=== PATIENT | female | born 1955 | race Caucasian/White ===

== ENCOUNTER → 2017-10-03 09:18 | Outpatient (CLI) | payer OTHER, SELFPAY ==
[2017-10-03 10:17] LABS: Absolute Lymphocyte Count 1.37 X10^3/ul (0.83-4.51); Basophil# 0.01 X10^3/uL; Basophil% 0.2 % (0-1); Eosinophil# 0.09 X10^3/uL; Eosinophils% 1.5 % (0-5); Hematocrit 44.3 % (37-47); Hemoglobin 14.8 g/dl (12.0-15.0); Lymphocyte # 1.37 X10^3/ul (4.0); Lymphocyte % 23.2 % (19-41); Mean Corp Hgb Conc 33.4 g/gl (32-36); Mean Corpuscular Hgb 30.8 pg (27.0-32.0); Mean Corpuscular Volume 92.3 fL (81-99); Mean Platelet Vol. 9.5 fl (6.2-12.0); Monocyte# 0.45 X10^3/uL; Monocyte% 7.6 % (0-10); Neutrophil # 3.98 X10^3/uL (2.7-7.7); Neutrophil % 67.3 % (47-70); Platelet Count 228 K/mm3 (150-450); RBC Distribution Width CV 12.5 % (11.6-14.6); RBC Distribution Width SD 42.1 fl (35.1-43.9); White Blood Count 5.9 K/mm3 (4.4-11.0)
[2017-10-03 10:29] LABS: POSITIVE COUNT NO; POSITIVE DIFFERENTIAL NO; POSITIVE MORPHOLOGY NO
[2017-10-03 10:51] LABS: AST(SGOT) 15 U/L (15-37); Alanine Aminotransfer ALT/SGPT 24 U/L (13-56); Albumin, Serum 3.7 g/dL (3.2-5.0); Alkaline Phosphatase 92 U/L (45-117); Anion Gap 4 (5-15); BUN 10 mg/dL (7-18); BUN/Creat Ratio 10.9 RATIO (10-20); Calcium,Total 8.4 mg/dL (8.5-10.1); Chloride 110 mmol/L (98-107); Cholesterol 177 mg/dL (200); Creatinine, Serum 0.92 mg/dL (0.55-1.02); EST Glomerular Filtration Rate 66 mL/min (>60); Est Glom Filt Rate - Afr Amer 80 mL/min (>60); Globulin 3.6 g/dL (2.2-4.2); Glucose 91 mg/dL (74-106); High Density Lipoprotein 64 mg/dL; Potassium 3.4 mmol/L (3.5-5.1); Protein, Total 7.3 g/dL (6.4-8.2); Sodium Level 142 mmol/L (136-145); Triglycerides 110 mg/dL; Very Low Density Lipoprotein 22 mg/dL (5-40)
== END ==
PROVIDERS: Family Provider Family Medicine; PCP Family Medicine; Visit Provider Family Medicine
DX: E78.5 Hyperlipidemia, unspecified (principal); Z51.81 Encounter for therapeutic drug level monitoring
CPT/HCPCS: 36415; 80053; 80061; 85025

== ENCOUNTER → 2017-10-15 11:39 | Outpatient (CLI) | payer OTHER, SELFPAY ==
[2017-10-15 14:44] LABS: CRP < 2.90 mg/L (0.0-3.0)
[2017-10-16 20:08] LABS: Endomysial Antibody IgA Negative (Negative)
[2017-10-17 11:26] LABS: Immunoglobulin A 211 mg/dL (87-352); t-Transglutaminase IgA <2 U/mL (0-3)
== END ==
PROVIDERS: Family Provider Family Medicine; PCP Family Medicine; Visit Provider Internal Medicine Gastroenterology
DX: R19.7 Diarrhea, unspecified (principal)
CPT/HCPCS: 36415; 82784; 83516; 86140; 86255

== ENCOUNTER → 2018-12-01 09:44 | Outpatient (CLI) | payer OTHER, SELFPAY ==
--- NOTE | 2018-12-01 09:50 | MRI_ITS ---
STUDY: MRI ORBITS WITH AND WITHOUT CONTRAST REASON FOR EXAM: Female, 63 years old. BENIGN NOEPLASM OF LEFT ORBIT, HEADACHES TECHNIQUE: Standardized fat and water weighted pulse sequences were obtained in all 3 orthogonal planes, pre-and post contrast administration. IV Dotarem 15 was administered for the contrast portion of the examination. COMPARISON: None. FINDINGS: Normal bilateral globes. Normal bilateral optic nerve sheath complexes and optic nerves. Normal bilateral intraconal and extraconal spaces. Normal bilateral extraocular muscles. Normal optic chiasm and post-chiasmatic tracts. Normal sella turcica, pituitary gland, infundibular stalk, and hypothalamus. Normal bilateral cavernous sinuses. Normal tectal plate and pineal gland. Normal flow voids within the major intracranial circulation suggesting patency by spin echo criteria. There is mild cerebral atrophy with widening of the extra-axial spaces and ventricular dilatation. There are a limited number of small white matter hyperintensities, distributed throughout the deep white matter tracts of the cerebral hemispheres, consistent with mild chronic white matter ischemic changes. Normal bilateral basal ganglia. Normal thalami. There is no extra-axial fluid accumulation. Normal midbrain, yordy and medulla. Normal cerebellum. Normal basal cisterns. MRI/Orbit Face Neck W/WO Contrast IMPRESSION: Unremarkable orbits. Electronically Signed: Ila Ferro MD at 9:48 EDT Tel , Service support ,
[2018-12-01 10:31] LABS: CREATININE FINGERSTICK 0.8 mg/dL (0.55-1.02); EGFR FINGERSTICK > 60.0000 mL/min (>60)
== END ==
PROVIDERS: Family Provider Family Medicine; PCP Family Medicine; Referring Provider Psychiatry & Neurology Neurology; Visit Provider Psychiatry & Neurology Neurology
DX: D31.62 Benign neoplasm of unspecified site of left orbit (principal)
CPT/HCPCS: 70543; A9575

== ENCOUNTER 2020-05-12 09:59 | Outpatient (RCR) | payer OTHER, SELFPAY ==
[2020-05-12] MEDS: COVID-19 VACC, MRNA(PFIZER)/PF 30 MCG/0.3 ML SYRINGE IM (13:12)
[2020-06-02] MEDS: COVID-19 VACC, MRNA(PFIZER)/PF 30 MCG/0.3 ML SYRINGE IM (13:09)
== END 2020-08-08 23:59 ==
LOC: IMMUN 09:59
PROVIDERS: PCP Family Medicine; Referring Provider Family Medicine; Visit Provider Family Medicine
DX: Z23 Encounter for immunization (principal)
CPT/HCPCS: 0001A; 0002A; 91300

== ENCOUNTER → 2022-01-25 | Outpatient (CLI) | payer OTHER, SELFPAY ==
--- NOTE | 2022-01-25 13:28 | BI_ITS ---
MAMMOGRAPHY - BILATERAL SCREENING REASON FOR EXAM: Female, 66 years old. Routine annual screening examination. PERTINENT HISTORY: Non-contributory. TECHNIQUE: Digital bilateral breast maribel (3D mammographic acquisition) in the CC and MLO projections. 2-D mediolateral oblique (MLO) and craniocaudad (CC) views of both breasts were obtained. CAD: Full Field Digital Mammography with Computer Added Detection was performed. COMPARISON: 08/23/2015, 09/21/2013. FINDINGS: Breast Composition: There are scattered areas of fibroglandular density. There are no dominant masses or suspicious calcifications. No other significant abnormalities are identified. There has been no significant change since the prior study. BI/SCRN MAMM (CAD)W/MARIBEL BILAT IMPRESSION: Stable bilateral screening mammogram. Yearly follow-up mammogram recommended. (A) ASSESSMENT CATEGORY: BIRADS Category 1: Negative. A letter regarding these results will be sent to the patient by the facility within 30 days. Approximately 10% of breast cancers are not detected by mammography. A normal mammogram should not delay biopsy of a clinically suspicious abnormality. Electronically Signed: Tio Parra, at 15:05 EST ,
== END | disposition home or self-care (01) ==
LOC: OPBI 13:27
PROVIDERS: PCP Family Medicine; Referring Provider Family Medicine; Visit Provider Family Medicine
DX: Z12.31 Encounter for screening mammogram for malignant neoplasm of breast (principal)
CPT/HCPCS: 77063; 77067

== ENCOUNTER → 2022-01-31 | Outpatient (CLI) | payer MEDICARE, SELFPAY ==
[2022-01-31 10:28] LABS: Absolute Lymphocyte Count 1.85 X10^3/uL (0.83-4.51); Absolute Neutrophil Count 3.8 X10^3/uL (2.0-7.7); Basophil# 0.02 X10^3/uL; Basophil% 0.3 % (0-1); Eosinophil# 0.08 X10^3/uL; Eosinophils% 1.3 % (0-5); Hematocrit 44.4 % (37-47); Hemoglobin 14.5 g/dL (12.0-15.0); Lymphocyte # 1.85 X10^3/ul (0.83-4.51); Lymphocyte % 29.3 % (19-41); Mean Corp Hgb Conc 32.7 g/dL (32-36); Mean Corpuscular Hgb 30.5 pg (27.0-32.0); Mean Corpuscular Volume 93.3 fL (81-99); Mean Platelet Vol. 9.5 fl (6.2-12.0); Monocyte# 0.55 X10^3/uL; Monocyte% 8.7 % (0-10); NRBC Flagged by Analyzer 0 % (0-5); Neutrophil # 3.79 X10^3/uL (2.7-7.7); Neutrophil % 60.1 % (47-70); Platelet Count 247 K/mm3 (150-450); RBC Distribution Width CV 12.2 % (11.6-14.6); RBC Distribution Width SD 42.1 fl (35.1-43.9); Red Blood Count 4.76 M/mm3 (4.2-5.4); White Blood Count 6.3 K/mm3 (4.4-11.0)
[2022-01-31 11:20] LABS: ALB/GLOB Ratio 1.3 RATIO (0.9-2.4); AST(SGOT) 10 U/L (15-37); Alanine Aminotransfer ALT/SGPT 23 U/L (13-56); Albumin, Serum 3.7 g/dL (3.2-5.0); Alkaline Phosphatase 83 U/L (45-117); Anion Gap 8 (5-15); BUN 14 mg/dL (7-18); BUN/Creat Ratio 17.1 RATIO (10-20); Calcium,Total 8.3 mg/dL (8.5-10.1); Chloride 109 mmol/L (98-107); Cholesterol 189 mg/dL (200); Creatinine, Serum 0.82 mg/dL (0.55-1.02); EST Glomerular Filtration Rate 75 mL/min (>60); Est Glom Filt Rate - Afr Amer 90 mL/min (>60); Globulin 2.8 g/dL (2.2-4.2); Glucose 82 mg/dL (74-106); High Density Lipoprotein 79 mg/dL; Potassium 3.6 mmol/L (3.5-5.1); Protein, Total 6.5 g/dL (6.4-8.2); Sodium Level 142 mmol/L (136-145); Triglycerides 126 mg/dL; Very Low Density Lipoprotein 25 mg/dL (5-40)
== END | disposition home or self-care (01) ==
PROVIDERS: PCP Family Medicine; Referring Provider Family Medicine; Visit Provider Family Medicine
DX: E78.5 Hyperlipidemia, unspecified (principal); Z51.81 Encounter for therapeutic drug level monitoring
CPT/HCPCS: 36415; 80053; 80061; 85025

== ENCOUNTER 2022-05-30 07:02 | Day surgery (SDC) | payer MEDICARE, OTHER, SELFPAY ==
[2022-05-30] MEDS: Lactated Ringers 1,000 ML 15 ML IV (07:24)
[2022-05-30 07:25] VITALS: BP 111/71; PULSE 71; RESP 16; TEMP 36.7; O2SAT 98; BMI 25.2
--- NOTE | 2022-05-30 07:46 | HP.PCM_ITS ---
History and Physical Date of Admission: 05/30/22 67 F who presents to the office today for PMH anxiety/depression; hyperlipidemia. PSH cholecystectomy *BGI established 05.17.22 with referral from PCP. Many years ago seen by Dr. Lindsay who she reports diagnosed her with diverticulosis and IBS-D; a medication was used at this time that was helpful but cannot remember the names. Postprandial and urgent watery stools for many years with urgency incontinence and intermittent LLQ pain, sometimes relieved by BM. She has attempted many OTC medication that were ineffective. GERD is also an intermittent issue. She does not take medication for this; sleeps with HOB elevated. ROS Const Constitutional: No anorexia, fatigue, fever(s), weight change or sleep problems Eyes Eyes: No change in vision ENT ENT: No abnormal hearing, difficulty swallowing, mouth lesions, tongue swelling or throat swelling Resp Respiratory: No cough or shortness of breath Cardio Cardiology: No chest pain at rest, chest pain with exertion, shortness of breath or dyspnea on exertion Gastro GI: No difficulty swallowing Genitourinary-Female: No difficulty urinating or burning urination Musc Musculoskeletal: No joint pain, joint swelling, muscle weakness or decreased muscle mass Skin Skin: No hair loss in leg, yellowing of the eye, itchy eyes, rash, skin ulcer or skin swelling Neuro Neurology: No abnormal hearing, abnormal movements, confusion, unsteady gait/balance or memory loss Psych Psychiatric: No anxiety, No confusion and No memory loss Endo Endocrine: No fatigue or weight change Aller/Imm Allergy/Immunologic: No itchy eyes, throat swelling or tongue swelling Joe/Lymp Hematologic/Lymphatic: No easy bleeding, easy bruising or enlarged lymph nodes Exam Const General: cooperative and comfortable Nutritional Appearance: average body habitus and well nourished [facility] Head: normal to inspection Ears: hearing grossly normal bilaterally Nose: external nose normal Face and sinus: normal facial exam Mouth: oral mucosae normal Throat: posterior oropharynx normal Eyes General: appearance normal, both eyes and all related structures Neck Neck: normal visual inspection Chest Chest palpation & inspection: normal inspection of the chest and normal palpation of entire chest wall Resp Effort & Inspection: normal respiratory effort Auscultation: Bilateral: Clear to Auscultation Cardio Palpation: normal PMI Rate: regular rate Rhythm: regular rhythm GI Inspection: normal to inspection Auscultation: normal bowel sounds Percussion: normal to percussion Palpation: no hepatosplenomegaly Skin General: no rashes or lesions noted Neuro General: patient alert Extrem General: normal to inspection Psych Affect: normal affect Quality Reporting Tobacco Screening ([facility]) Smoking Status: Never smoker Assessment and Plan Assessment and Plan (1) Chronic diarrhea: ?Status:?Chronic ?Plan: Differential diagnosis for chronic diarrhea does include inflammatory bowel disease including Crohn's disease.? Also the different diagnosis would be other secretory diarrhea such as ischemic colitis, microscopic colitis, lymphocytic colitis, celiac sprue, infectious colitis or enterocolitis.? We will perform biochemical work-up and she may need repeat upper and lower endoscopy in the future.? Pending biochemical work-up and stool test she may also need small bowel evaluation.? As for now we will see what her biochemical work-up shows and further recommendation to follow. ? ? ? Orders: Orders Comprehensive Metabolic Profil Today E78.5 - Hyperlipidemia, unspecified, K52.9 - Noninfective gastroenteritis and colitis, unspecified ? CRP Today E78.5 - Hyperlipidemia, unspecified, K52.9 - Noninfective gastroenteritis and colitis, unspecified ? LDH Today E78.5 - Hyperlipidemia, unspecified, K52.9 - Noninfective gastroenter itis and colitis, unspecified ? Lipid Profile Today E78.5 - Hyperlipidemia, unspecified, K52.9 - Noninfective gastroenteritis and colitis, unspecified ? CBC W/Diff, Automated Today E78.5 - Hyperlipidemia, unspecified, K52.9 - Noninfective gastroenteritis and colitis, unspecified ? Erythrocyte Sed Rate Today E78.5 - Hyperlipidemia, unspecified, K52.9 - Noninfective gastroenteritis and colitis, unspecified ? [place] Comprehensive Panel Today E78.5 - Hyperlipidemia, unspecified, K52.9 - Noninfective gastroenteritis and colitis, unspecified ? Calprotectin, Stool Today E78.5 - Hyperlipidemia, unspecified, K52.9 - Noninfective gastroenteritis and colitis, unspecified ? Fecal Fat, Qualitative Today E78.5 - Hyperlipidemia, unspecified, K52.9 - Noninfective gastroenteritis and colitis, unspecified ? OVA+PARA w/Giardia EIA [id number] Today E78.5 - Hyperlipidemia, unspecified, K52.9 - Noninfective gastroenteritis and colitis, unspecified ? CDIFF (PCR) Today E78.5 - Hyperlipidemia, unspecified, K52.9 - Noninfective gastroenteritis and colitis, unspecified ? ENTERIC PATHOGEN PANEL STOOL Today E78.5 - Hyperlipidemia, unspecified, K52.9 - Noninfective gastroenteritis and colitis, unspecified, K58.9 - Irritable bowel syndrome without diarrhea ? Stool Lactoferrin/WBC Today E78.5 - Hyperlipidemia, unspecified, K52.9 - Noninfective gastroenteritis and colitis, unspecified ? ANCA Today E78.5 - Hyperlipidemia, unspecified, K52.9 - Noninfective gastroenteritis and colitis, unspecified ? Celiac Disease Profile Today E78.5 - Hyperlipidemia, unspecified, K52.9 - Noninfective gastroenteritis and colitis, unspecified ? Immunoglobulins G/A/M/E Today E78.5 - Hyperlipidemia, unspecified, K52.9 - Noninfective gastroenteritis and colitis, unspecified ? TRAE + Protein Elect, Serum Today E78.5 - Hyperlipidemia, unspecified, K52.9 - Noninfective gastroenteritis and colitis, unspecified ? Pancreatic Elastase, Fecal Today E78.5 - Hyperlipidemia, unspecified, K52.9 - Noninfective gastroenteritis and colitis, unspecified ? Miscellaneous Lab Procedure Today E78.5 - Hyperlipidemia, unspecified, K52.9 - Noninfective gastroenteritis and colitis, unspecified ? I have examined the patient and the H&P has been reviewed. There are no clinical changes since date of exam.
--- NOTE | 2022-05-30 08:15 | IMM_PTH ---
PATIENT: REDD BRANDT LOC: EN U#:[id number] AGE/SX: 67/F ROOM: RE05/30/[address]: Dr. Vivek Feliz DO : 1955 BED: DIS: 05/30/2022 SPEC #: [id number] RECD: 05/30/22 14:14 STATUS: HOA REQ #: [id number] SUZANNE: 05/30/22 08:[address]: Vivek Feliz DEPT: IMMUNOHISTOCHEMISTRY RECD BY: Jesi Dillno ENTERED: 05/30/22 14:15 SP TYPE: IMMUNO OTHR DR: Dr. Ilda Cleaning DO Tissues: B - Stomach, NOS Procedures: H Pylori (initial) PHYSICIAN & INSTITUTION [place] [id number] SPECIMEN INFORMATION: Tissue Source: B ? Gastric body Clinical Info: Chronic diarrhea Specimen Number: [id number] CPT code: 54801 METHODOLOGY: Deparaffinized sections of prefer/formalin-fixed tissue or PAP/DQ stained slides are incubated with monoclonal/polyclonal antibodies/oligonucleotide probes. Localization is made via biotin free immunoperoxidase method. Appropriate controls are performed and reacted as expected. Results on target cell population are indicated in the following table: RESULTS: ANTIBODY / CLONE RESULT Block B H Pylori (polyclonal) negative These tests were developed and their performance characteristics determined by [facility]. They may not have been cleared or approved by the U.S. Food and Drug Administration. The FDA has determined that such clearance or approval is not necessary. The above immunohistochemical/dualISH markers are ordered and reviewed by the Pathologist. INTERPRETATION: B. Gastric body, biopsy: Negative for Helicobacter pylori organisms. SJ:trenton 05/31/2022
--- NOTE | 2022-05-30 08:15 | EGD_PTH ---
PATIENT: REDD BRANDT LOC: EN U#:[id number] AGE/SX: 67/F ROOM: RE05/30/[address]: Dr. Vivek Feliz DO : 1955 BED: DIS: 05/30/2022 SPEC #: [id number] RECD: 05/30/22 12:55 STATUS: HOA REDangelo #: [id number] SUZANNE: 05/30/22 08:[address]: Vivek Feliz DEPT: SURGICAL PATHOLOGY RECD BY: Ayesha Adrian ENTERED: 05/30/22 13:27 SP TYPE: EGD BIOPSY OT DR: Dr. Ilda Cleaning DO Tissues: A - Duodenum, NOS B - Gastric mucous membrane C - Esophagus, NOS D - COLON BIOPSY E - Ileum, NOS F - Cecum, NOS G - Transverse colon Procedures: Special Stain Group II Surgery Specimen Level IV Alcian Blue/PAS (control) HEADER OPERATION: Colonoscopy, EGD ([facility]), biopsy PRE-OP DIAGNOSIS: Chronic diarrhea TISSUE SUBMITTED: A ? Duodenum biopsy, B ? Gastric body biopsy, C ? Distal esophagus biopsy, D ? Hepatic flexure polyp biopsy, E ? Terminal ileum biopsy, F ? Cecal polyp biopsy, G ? Transverse polyp biopsy MICROSCOPIC DIAGNOSIS A. Duodenum, biopsy: Fragments of duodenal mucosa, no pathologic diagnosis. B. Gastric body, biopsy: Mild gastritis. See microscopic description and comment. C. Distal esophagus, biopsy: A fragment of gastric mucosa with mild chronic inflammation. Intestinal metaplasia (goblet cell metaplasia) not identified. See comment. D. Hepatic flexure polyp, biopsy: Tubular adenoma. E. Terminal ileum, biopsy: Fragments of small intestinal mucosa, no pathologic diagnosis. F. Cecal polyp, biopsy: Tubular adenoma. G. Transverse colon polyp, biopsy: Fragments of tubular adenoma. SJ:trenton 05/31/2022 COMMENT B. The results of immunohistochemistry for Helicobacter pylori will be reported separately ([id number]). C. Alcian blue/PAS stain with matched control is used in the evaluation of the specimen. MICROSCOPIC DESCRIPTION Slides are reviewed. B. The specimen shows fragments of gastric mucosa with chronic inflammatory cell infiltrates in the lamina propria consisting of lymphocytes and plasma cells, consistent with mild chronic gastritis. GROSS DESCRIPTION A - Received in fixative is one container labeled with the patient's name and designated duodenum biopsy. The specimen consists of two irregular fragments of light sánchez soft tissue that in aggregate measure 0.6 x 0.3 x 0.1 cm. The specimen is totally submitted in one cassette. B - Received in fixative is one container labeled with the patient's name and designated gastric body biopsy. The specimen consists of two irregular fragments of light sánchez soft tissue that in aggregate measure 0.8 x 0.5 x 0.1 cm. The specimen is totally submitted in one cassette. C - Received in fixative is one container labeled with the patient's name and designated distal esophagus biopsy. The specimen consists of one irregular fragment of light sánchez soft tissue that measures 0.4 x 0.2 x 0.1 cm. The specimen is totally submitted in one cassette. D - Received in fixative is one container labeled with the patient's name and designated hepatic flexure polyp. The specimen consists of two irregular fragments of light sánchez soft tissue that in aggregate measure 0.5 x 0.3 x 0.1 cm. The specimen is totally submitted in one cassette. E - Received in fixative is one container labeled with the patient's name and designated terminal ileum biopsy. The specimen consists of two irregular fragments of light sánchez soft tissue that in aggregate measure 0.6 x 0.3 x 0.1 cm. The specimen is totally submitted in one cassette. F - Received in fixative is one container labeled with the patient's name and designated cecal polyp biopsy. The specimen consists of one irregular fragment of light sánchez soft tissue that measures 0.3 x 0.4 x 0.1 cm. The specimen is totally submitted in one cassette. G - Received in fixative is one container labeled with the patient's name and designated transverse polyp biopsy. The specimen consists of two irregular fragments of light sánchez soft tissue that in aggregate measure 0.6 x 0.3 x 0.1 cm. The specimen is totally submitted in one cassette. / SJ:rg 05/30/2022 TC:1 CPT: 77361 x7, 03180
[2022-05-30 08:56] VITALS: BP 111/71; BP 123/77; PULSE 58; RESP 16; TEMP 36.2; O2SAT 99
--- NOTE | 2022-05-30 08:58 | OP.EGD_ITS ---
Patient Name: Belgica Malin Procedure Date: 05/30/2022 7:46 AM Date of : 1955 Age: 67 Procedure: Upper GI endoscopy Indications: Epigastric abdominal pain, Functional Dyspepsia, Suspected esophageal reflux Providers: Vivek Feliz DO Medicines: Monitored Anesthesia Care Patient Profile: This is a 67 year old female. Refer to note in patient chart for documentation of history and physical. Patient has symptoms of chronic epigastric abdominal pain, chronic dyspepsia and chronic nausea. Complications: No immediate complications. Procedure: Pre-Anesthesia Assessment: - Prior to the procedure, a History and Physical was performed, and patient medications and allergies were reviewed. The patient is competent. The risks and benefits of the procedure and the sedation options and risks were discussed with the patient. All questions were answered and informed consent was obtained. Patient identification and proposed procedure were verified by the physician in the pre-procedure area. Mental Status Examination: alert and oriented. Airway Examination: normal oropharyngeal airway and neck mobility. Respiratory Examination: clear to auscultation. CV Examination: normal. Prophylactic Antibiotics: The patient does not require prophylactic antibiotics. Prior Anticoagulants: The patient has taken no previous anticoagulant or antiplatelet agents. ASA Grade Assessment: II - A patient with mild systemic disease. After reviewing the risks and benefits, the patient was deemed in satisfactory condition to undergo the procedure. The anesthesia plan was to use monitored anesthesia care (MAC). Immediately prior to administration of medications, the patient was re-assessed for adequacy to receive sedatives. The heart rate, respiratory rate, oxygen saturations, blood pressure, adequacy of pulmonary ventilation, and response to care were monitored throughout the procedure. The physical status of the patient was re-assessed after the procedure. After obtaining informed consent, the endoscope was passed under direct vision. Throughout the procedure, the patient's blood pressure, pulse, and oxygen saturations were monitored continuously. The pediatric colonoscope was introduced through the mouth, and advanced to the second part of duodenum. The upper GI endoscopy was accomplished without difficulty. The patient tolerated the procedure well. Scope In: 8:35:09 AM Scope Out: 8:39:01 AM Total Procedure Duration Time 0 hours 3 minutes 52 seconds Findings: Mucosal changes including ringed esophagus, feline appearance and small-caliber esophagus were found in the middle third of the esophagus and in the lower third of the esophagus. LA Grade A (one or more mucosal breaks less than 5 mm, not extending between tops of 2 mucosal folds) esophagitis with no bleeding was found 37 to 38 cm from the incisors. Biopsies were taken with a cold forceps for histology. Verification of patient identification for the specimen was done. Estimated blood loss was minimal. Patchy mild inflammation characterized by congestion (edema) and erythema was found in the stomach. Biopsies were taken with a cold forceps for histology. Verification of patient identification for the specimen was done. Estimated blood loss was minimal. No gross lesions were noted in the second portion of the duodenum. Biopsies were taken with a cold forceps for histology. Verification of patient identification for the specimen was done. Estimated blood loss was minimal. A medium-sized hiatal hernia was present. Impression: - Esophageal mucosal changes consistent with eosinophilic esophagitis. - LA Grade A reflux esophagitis. Biopsied. - Bile gastritis. Biopsied. - No gross lesions in the second portion of the duodenum. Biopsied. Recommendation: - Discharge patient to home. - Resume previous diet. - Continue present medications. - Await pathology results. - Repeat upper endoscopy in 1 year for surveillance. Procedure Code(s): --- Professional --- 02079, Esophagogastroduodenoscopy, flexible, transoral; with biopsy, single or multiple CPT copyright 2017 [employer]. All rights reserved. The codes documented in this report are preliminary and upon hand salter review may be revised to meet current compliance requirements. Vivek Feliz DO 05/30/2022 8:58:27 AM This report has been signed electronically. Number of Addenda: 0 Note Initiated On: 05/30/2022 7:46 AM
--- NOTE | 2022-05-30 08:59 | OP.CCLET_ITS ---
05/30/2022 Ilda Cleaning [address] [place] [address] Re : Upper GI endoscopy procedure for Belgica Malin Dear Dr. Cleaning This procedure was performed on May. My impressions and recommendations are as follows: Impressions : - Esophageal mucosal changes consistent with eosinophilic esophagitis. - LA Grade A reflux esophagitis. Biopsied. - Bile gastritis. Biopsied. - No gross lesions in the second portion of the duodenum. Biopsied. Recommendations : - Discharge patient to home. - Resume previous diet. - Continue present medications. - Await pathology results. - Repeat upper endoscopy in 1 year for surveillance. My findings are described in the full procedure note, which is enclosed. If I can be of further assistance, please feel free to contact me at . Sincerely, Vivek Feliz, 05/30/2022 8:58:27 AM This report has been signed electronically.
[2022-05-30 09:00] VITALS: BP 111/71; BP 90/63; PULSE 76; RESP 16; O2SAT 100
[2022-05-30 09:05] VITALS: BP 111/71; BP 94/61; PULSE 70; RESP 16; O2SAT 100
--- NOTE | 2022-05-30 09:06 | OP.COLON_ITS ---
Patient Name: Belgica Malin Procedure Date: 05/30/2022 8:39 AM Date of : 1955 Age: 67 Procedure: Colonoscopy Indications: Screening for colorectal malignant neoplasm Providers: Vivek Feliz DO Medicines: Monitored Anesthesia Care Patient Profile: This is a 67 year old female. Refer to note in patient chart for documentation of history and physical. Patient has symptoms of chronic epigastric abdominal pain, chronic dyspepsia and chronic nausea. Last Colonoscopy: date unknown. Unable to locate last colonoscopy report. Complications: No immediate complications. Procedure: Pre-Anesthesia Assessment: - Prior to the procedure, a History and Physical was performed, and patient medications and allergies were reviewed. The patient is competent. The risks and benefits of the procedure and the sedation options and risks were discussed with the patient. All questions were answered and informed consent was obtained. Patient identification and proposed procedure were verified by the physician in the pre-procedure area. Mental Status Examination: alert and oriented. Airway Examination: normal oropharyngeal airway and neck mobility. Respiratory Examination: clear to auscultation. CV Examination: normal. Prophylactic Antibiotics: The patient does not require prophylactic antibiotics. Prior Anticoagulants: The patient has taken no previous anticoagulant or antiplatelet agents. ASA Grade Assessment: II - A patient with mild systemic disease. After reviewing the risks and benefits, the patient was deemed in satisfactory condition to undergo the procedure. The anesthesia plan was to use monitored anesthesia care (MAC). Immediately prior to administration of medications, the patient was re-assessed for adequacy to receive sedatives. The heart rate, respiratory rate, oxygen saturations, blood pressure, adequacy of pulmonary ventilation, and response to care were monitored throughout the procedure. The physical status of the patient was re-assessed after the procedure. After I obtained informed consent, the scope was passed under direct vision. Throughout the procedure, the patient's blood pressure, pulse, and oxygen saturations were monitored continuously. The pediatric colonoscope was introduced through the anus and advanced to the terminal ileum. The colonoscopy was performed without difficulty. The patient tolerated the procedure well. The quality of the bowel preparation was good. Scope In: 8:41:16 AM Scope Withdrawal Time 0 hours 5 minutes 37 seconds Scope Out: 8:51:23 AM Total Procedure Duration Time 0 hours 10 minutes 7 seconds Findings: The perianal and digital rectal examinations were normal. Many small and large-mouthed diverticula were found in the recto-sigmoid colon, sigmoid colon and descending colon. Three sessile polyps were found in the descending colon, transverse colon and hepatic flexure. The polyps were 1 to 2 mm in size. These polyps were removed with a cold snare. Resection and retrieval were complete. Verification of patient identification for the specimen was done. Estimated blood loss was minimal. An area of mildly congested mucosa was found at the splenic flexure, in the transverse colon and at the hepatic flexure. Biopsies were taken with a cold forceps for histology. The pathology specimen was placed into Bottle Number 1. Estimated blood loss: none. The terminal ileum appeared normal. Biopsies were taken with a cold forceps for histology. Verification of patient identification for the specimen was done. Estimated blood loss was minimal. Impression: - Diverticulosis in the recto-sigmoid colon, in the sigmoid colon and in the descending colon. - Three 1 to 2 mm polyps in the descending colon, in the transverse colon and at the hepatic flexure, removed with a cold snare. Resected and retrieved. - Congested mucosa at the splenic flexure, in the transverse colon and at the hepatic flexure. Biopsied. - The examined portion of the ileum was normal. Biopsied. Recommendation: - Discharge patient to home. - Resume regular diet. - Continue present medications. - Await pathology results. - Repeat colonoscopy in 3 years for surveillance. Procedure Code(s): --- Professional --- 78842, Colonoscopy, flexible; with removal of tumor(s), polyp(s), or other lesion(s) by snare technique 83873, 59, Colonoscopy, flexible; with biopsy, single or multiple CPT copyright 2017 [employer]. All rights reserved. The codes documented in this report are preliminary and upon hat brim curler review may be revised to meet current compliance requirements. Vivek Feliz DO 05/30/2022 9:06:15 AM This report has been signed electronically. Number of Addenda: 0 Note Initiated On: 05/30/2022 8:39 AM
--- NOTE | 2022-05-30 09:07 | OP.CCLET_ITS ---
05/30/2022 Ilda Cle[facility] [address] [place] [address] Re : Colonoscopy procedure for Belgica Salinast Dear Dr. Cleaning This procedure was performed on May. My impressions and recommendations are as follows: Impressions : - Diverticulosis in the recto-sigmoid colon, in the sigmoid colon and in the descending colon. - Three 1 to 2 mm polyps in the descending colon, in the transverse colon and at the hepatic flexure, removed with a cold snare. Resected and retrieved. - Congested mucosa at the splenic flexure, in the transverse colon and at the hepatic flexure. Biopsied. - The examined portion of the ileum was normal. Biopsied. Recommendations : - Discharge patient to home. - Resume regular diet. - Continue present medications. - Await pathology results. - Repeat colonoscopy in 3 years for surveillance. My findings are described in the full procedure note, which is enclosed. If I can be of further assistance, please feel free to contact me at . Sincerely, Vivek Feliz, 05/30/2022 9:06:15 AM This report has been signed electronically.
[2022-05-30 09:10] VITALS: BP 111/71; BP 92/59; PULSE 69; RESP 16; O2SAT 98
[2022-05-30 09:26] VITALS: BP 111/71
== END 2022-05-30 09:30 | disposition home or self-care (01) ==
LOC: EN 07:02 → AC 07:05
PROVIDERS: PCP Family Medicine; Referring Provider Family Medicine; Visit Provider Internal Medicine Gastroenterology
PROC: 0DJD8ZZ Inspection of Lower Intestinal Tract, Via Natural or Artificial Opening Endoscopic (ICD-10-PCS; CPT 45378; principal; 2022-05-30 08:10)
DX: Z12.11 Encounter for screening for malignant neoplasm of colon (principal); K29.70 Gastritis, unspecified, without bleeding; K21.00 Gastro-esophageal reflux disease with esophagitis, without bleeding; K57.30 Diverticulosis of large intestine without perforation or abscess without bleeding; E78.5 Hyperlipidemia, unspecified; K52.9 Noninfective gastroenteritis and colitis, unspecified; D12.3 Benign neoplasm of transverse colon; D12.0 Benign neoplasm of cecum; Z87.19 Personal history of other diseases of the digestive system
CPT/HCPCS: 43239; 45380; 45385; 88305; 88313; 88342; J2405

== ENCOUNTER → 2022-06-06 | Outpatient (CLI) | payer MEDICARE, OTHER, SELFPAY ==
[2022-06-06 09:59] LABS: Erythrocyte Sedimentation Rate 12 mm/hr (0-30)
[2022-06-06 10:02] LABS: Absolute Lymphocyte Count 1.48 X10^3/uL (0.83-4.51); Absolute Neutrophil Count 4.1 X10^3/uL (2.0-7.7); Basophil# 0.02 X10^3/uL; Basophil% 0.3 % (0-1); Eosinophil# 0.07 X10^3/uL; Eosinophils% 1.1 % (0-5); Hematocrit 43.7 % (37-47); Hemoglobin 14.9 g/dL (12.0-15.0); Lymphocyte # 1.48 X10^3/ul (0.83-4.51); Lymphocyte % 24.2 % (19-41); Mean Corp Hgb Conc 34.1 g/dL (32-36); Mean Corpuscular Hgb 31.5 pg (27.0-32.0); Mean Corpuscular Volume 92.4 fL (81-99); Mean Platelet Vol. 9.3 fl (6.2-12.0); Monocyte# 0.42 X10^3/uL; Monocyte% 6.9 % (0-10); NRBC Flagged by Analyzer 0 % (0-5); Neutrophil # 4.12 X10^3/uL (2.7-7.7); Neutrophil % 67.3 % (47-70); Platelet Count 239 K/mm3 (150-450); RBC Distribution Width CV 12.1 % (11.6-14.6); RBC Distribution Width SD 41.6 fl (35.1-43.9); Red Blood Count 4.73 M/mm3 (4.2-5.4); White Blood Count 6.1 K/mm3 (4.4-11.0)
[2022-06-06 10:15] LABS: ALB/GLOB Ratio 1.2 RATIO (0.9-2.4); AST(SGOT) 15 U/L (15-37); Alanine Aminotransfer ALT/SGPT 24 U/L (13-56); Albumin, Serum 3.8 g/dL (3.2-5.0); Alkaline Phosphatase 87 U/L (45-117); Anion Gap 8 (5-15); BUN 15 mg/dL (7-18); BUN/Creat Ratio 18.2 RATIO (10-20); CRP < 2.90 mg/L (0.0-3.0); Calcium,Total 9.3 mg/dL (8.5-10.1); Chloride 109 mmol/L (98-107); Cholesterol 183 mg/dL (200); Creatinine, Serum 0.82 mg/dL (0.55-1.02); EST Glomerular Filtration Rate 74 mL/min (>60); Est Glom Filt Rate - Afr Amer 90 mL/min (>60); Globulin 3.2 g/dL (2.2-4.2); Glucose 90 mg/dL (74-106); High Density Lipoprotein 66 mg/dL; LDH 152 U/L (84-246); Potassium 3.2 mmol/L (3.5-5.1); Sodium Level 141 mmol/L (136-145); Triglycerides 108 mg/dL; Very Low Density Lipoprotein 22 mg/dL (5-40)
[2022-06-07 14:09] LABS: Anti-Centromere B Ab <0.2 AI (0.0-0.9); Anti-Chromatin <0.2 AI (0.0-0.9); Anti-Jo <0.2 AI (0.0-0.9); Anti-Scleroderma-70 AB <0.2 AI (0.0-0.9); RNP Ab <0.2 AI (0.0-0.9); SJOGREN'S Anti-SS-A test < 0.2 AI (0.0-0.9); SJOGREN'S Anti-SS-B test < 0.2 AI (0.0-0.9); Smith Ab <0.2 AI (0.0-0.9)
[2022-06-07 15:08] LABS: Endomysial Antibody IgA Negative (Negative)
[2022-06-07 15:28] LABS: Anti-dsDNA Ab <1 IU/mL (0-9)
[2022-06-07 15:50] LABS: Immunoglobulin A 164 mg/dL (87-352); t-Transglutaminase IgA <2 U/mL (0-3)
[2022-06-10 13:07] LABS: Albumin 3.7 g/dL (2.9-4.4); Alpha-1-Globulins 0.3 g/dL (0.0-0.4); Alpha-2-Globulins 0.8 g/dL (0.4-1.0); Cytoplasmic Ab (C-ANCA) <1:20 titer (Neg:<1:20); Gamma Globulin 0.9 g/dL (0.4-1.8); Immunoglobulin A 157 mg/dL (87-352); Immunoglobulin E 7 IU/mL (6-495); Immunoglobulin G 917 mg/dL (586-1602); Immunoglobulin M 33 mg/dL (26-217); PROEL- TOTAL PROTEIN 6.6 g/dL (6.0-8.5)
[2022-06-10 13:27] LABS: IMMUNOFIXATION RESULT,S Comment: (.); Perinuclear Ab (P-ANCA) <1:20 titer (Neg:<1:20)
== END | disposition home or self-care (01) ==
PROVIDERS: PCP Family Medicine; Referring Provider Internal Medicine Gastroenterology; Visit Provider Internal Medicine Gastroenterology
DX: K52.9 Noninfective gastroenteritis and colitis, unspecified (principal); E78.5 Hyperlipidemia, unspecified
CPT/HCPCS: 36415; 80053; 80061; 82784; 82785; 83516; 83615; 84165; 85025; 85652; 86140; 86225; 86235; 86255; 86256; 86334

== ENCOUNTER → 2022-06-07 | Outpatient (CLI) | payer MEDICARE, OTHER, SELFPAY ==
[2022-06-14 15:24] LABS: Pancreatic Elastase, Fecal 500 (>200)
== END | disposition home or self-care (01) ==
LOC: MTLAB 12:46
PROVIDERS: PCP Family Medicine; Referring Provider Internal Medicine Gastroenterology; Visit Provider Internal Medicine Gastroenterology
DX: K52.9 Noninfective gastroenteritis and colitis, unspecified (principal)
CPT/HCPCS: 82653; 83630; 87177; 87209; 87329

== ENCOUNTER → 2022-06-12 | Outpatient (CLI) | payer MEDICARE, OTHER, SELFPAY ==
--- NOTE | 2022-06-12 19:04 | CT_ITS ---
STUDY: CT ABDOMEN AND PELVIS WITH CONTRAST REASON FOR EXAM: Female, 67 years old. abd pain RADIATION DOSAGE (If Supplied By Facility): CTDIvol = ( 12.31 ) mGy, DLP = ( 502.66 ) mGycm TECHNIQUE: Transaxial images were obtained from the dome of the diaphragm to the symphysis pubis without oral contrast. Oral and amp; IV Redi-CAT and amp; 100mL Isovue-370 was administered. Sagittal and coronal images were reconstructed. Individualized dose optimization techniques were used for this CT. COMPARISON: August 19, 2012. FINDINGS: The visualized lung bases are unremarkable. The visualized portions of the heart are within normal limits. Normal liver. Status post cholecystectomy. Mild dilatation of the biliary system. Normal spleen. Normal pancreas. Normal bilateral adrenal glands. Normal right kidney. Normal left kidney. Normal visualized stomach. Normal small intestine. Mild diverticulosis of the colon. The appendix is normal. Normal abdominal aorta. Normal inferior vena cava. Normal retroperitoneum. Normal urinary bladder. Normal abdominal wall. Degenerative changes. CT/Abdomen/Pelvis WITH Contrast IMPRESSION: Mild colonic diverticulosis. Status post cholecystectomy. Mild biliary dilatation. Electronically Signed: Ayden Price DO at 21:40 EDT Reading Location ID and State: [facility] / [place] Tel [phone], Service support ,
== END | disposition home or self-care (01) ==
LOC: CT 18:55
PROVIDERS: PCP Family Medicine; Visit Provider Internal Medicine Gastroenterology
DX: R10.9 Unspecified abdominal pain (principal)
CPT/HCPCS: 74177; Q9967

== ENCOUNTER → 2024-08-06 | Outpatient (CLI) | payer MEDICARE, OTHER, SELFPAY ==
[2024-08-06 10:03] LABS: Absolute Lymphocyte Count 1.86 X10^3/uL (0.83-4.51); Absolute Neutrophil Count 4.1 X10^3/uL (2.0-7.7); Basophil# 0.02 X10^3/uL; Basophil% 0.3 % (0-1); Eosinophil# 0.06 X10^3/uL; Eosinophils% 0.9 % (0-5); Hematocrit 42.2 % (37-47); Lymphocyte # 1.86 X10^3/ul (0.83-4.51); Lymphocyte % 28.7 % (19-41); Mean Corp Hgb Conc 33.2 g/dL (32-36); Mean Corpuscular Hgb 30.8 pg (27.0-32.0); Mean Corpuscular Volume 92.7 fL (81-99); Mean Platelet Vol. 9.1 fl (6.2-12.0); Monocyte# 0.42 X10^3/uL; Monocyte% 6.5 % (0-10); NRBC Flagged by Analyzer 0 % (0-5); Neutrophil % 63.3 % (47-70); Platelet Count 226 K/mm3 (150-450); RBC Distribution Width CV 12.3 % (11.6-14.6); RBC Distribution Width SD 41.9 fl (35.1-43.9); Red Blood Count 4.55 M/mm3 (4.2-5.4); White Blood Count 6.5 K/mm3 (4.4-11.0)
[2024-08-06 10:34] LABS: Erythrocyte Sedimentation Rate 5 mm/hr (0-30)
[2024-08-06 10:51] LABS: ALB/GLOB Ratio 1.6 RATIO (0.9-2.4); AST(SGOT) 17 U/L (<=31); Alanine Aminotransfer ALT/SGPT 18 U/L (<=34); Albumin, Serum 4.3 g/dL (3.4-4.8); Alkaline Phosphatase 95 U/L (35-104); Anion Gap 9 (5-15); BUN 10 mg/dL (4-19); BUN/Creat Ratio 13.3 RATIO (10-20); CRP < 3.00 mg/L (0.0-3.0); Calcium,Total 8.9 mg/dL (7.6-11.0); Carbon Dioxide 24.1 mmol/L (21.0-32.0); Chloride 107 mmol/L (98-108); Creatinine, Serum 0.75 mg/dL (0.70-1.20); EST Glomerular Filtration Rate 87 (>60); Globulin 2.7 g/dL (2.2-4.2); Glucose 96 mg/dL (70-99); Potassium 3.6 mmol/L (3.3-5.1); Sodium Level 140 mmol/L (133-145); Total Bilirubin 0.42 mg/dL (0.00-1.30)
--- OUTSIDE RECORDS SUMMARY | 2024-08-06 11:31 | XMS RPT_ITS | CCD ---
Author Organization [facility] Care Team Providers Care Contract Administration Specialist Name Role Phone Dr. Ilda Cleaning Primary Care Provider Dr. Ilda Cleaning Referring Provider [phone] Friend, Dr. Doyle Attending Provider [phone] Friend, Dr. Doyle Other Provider Ilda Cleaning Referring Unavailable Ilda Cleaning Primary Care Unavailable FriendVivek Attending Unavailable FriendVivek Attending Unavailable Ilda Cleaning Referring Unavailable Ilda Cleaning Primary Care Unavailable Medications Current Medications Medication Drug Class(es) Dates Sig (Normalized) Sig (Original) atorvastatin 40 mg oral tablet (3 sources) HMG-CoA Reductase Inhibitor Start: 02-04-2022 take 40 mg by mouth once daily Atorvastatin Active 40 MG PO DAILY February 04, 2022 1:00am buPROPion hydrochloride 100 mg oral tablet (3 sources) Aminoketone Start: 02-04-2022 take 100 mg by mouth twice daily Bupropion Hcl Active 100 MG PO TWICE A DAY February 04, 2022 1:00am eletriptan 40 mg oral tablet (3 sources) Serotonin-1b and Serotonin-1d Receptor Agonist Start: 05-28-2022 Eletriptan Active 40 MG PO NEEDED May 28, 2022 12:00am fluticasone propionate 0.05 mg/actuat metered dose nasal spray (3 sources) Corticosteroid Start: 02-04-2022 take 1 spray(s) nasal route twice daily Fluticasone Propionate Active 1 SPRAY INTRANASAL TWICE A DAY February 04, 2022 1:00am administer into each nostril latanoprost 0.05 mg/ml ophthalmic solution (3 sources) Prostaglandin Analog Start: 05-28-2022 Latanoprost Active 1 DRP EACH EYE AT BEDTIME May 28, 2022 12:00am Multivitamin preparation (3 sources) Start: 05-28-2022 take 1 tablet by mouth once daily Multivitamin Active 1 TABLET PO DAILY May 28, 2022 12:00am pantoprazole 40 mg delayed release oral tablet (2 sources) Proton Pump Inhibitor Start: 06-04-2022 take 1 tablet by mouth twice daily Pantoprazole (Protonix) 40 mg tablet,delayed release (DR/EC) Active 40 MG PO TWICE A DAY 60 June 04, 2022 12:00am sertraline 100 mg oral tablet (3 sources) Serotonin Reuptake Inhibitor Start: 02-04-2022 take 150 mg by mouth once daily Sertraline Active 150 MG PO DAILY February 04, 2022 1:00am topiramate 200 mg oral tablet (3 sources) Start: 02-04-2022 take 200 mg by mouth twice daily Topiramate Active 200 MG PO TWICE A DAY February 04, 2022 1:00am Problems Problem Classification Problem Date Documented Da te Episodic/Chronic Abdominal pain (2 sources) Abdominal pain; Translations: [Unspecified abdominal pain] 06-04-2022 Episodic Disorders of lipid metabolism (3 sources) Hyperlipidemia; Translations: [Hyperlipidemia, unspecified] 05-17-2022 Chronic Noninfectious gastroenteritis (6 sources) Chronic diarrhea; Translations: [Noninfective gastroenteritis and colitis, unspecified] 05-17-2022 Episodic Results Test Name Value Interpretation Reference Range Facility Gastroenterology Visit Repor ton 07-29-2023 Gastroenterology Visit Report [facility] G[facility] [address] [place] [address] OFFICE VISIT Date of Service: 07/29/23 MR#: [id number] Acct: [id number] Name: REDD BRANDT Rep #: [id number] : 1955 Provider: Vivek Feliz DO Age/Sex: 68/F Location: [facility] Status: Signed Intake Vital Signs 07/25/22 13:13 Height 5 ft 6 in Intake Visit Reasons: 1 YR FU Chief Complaint: f/u diarrhea Allergies No Known Allergies Allergy (Verified 07/25/22 13:12) Medications ???Medication ???Instructions ???Recorded ???Confirmed ???Type atorvastatin 40 mg tablet 40 mg PO DAILY 02/04/22 07/29/23 History bupropion HCl 100 mg tablet 100 mg PO BID 02/04/22 07/29/23 History fluticasone propionate 50 1 spray intranasal BID 02/04/22 07/29/23 History mcg/actuation nasal spray,suspension sertraline 100 mg tablet 150 mg PO DAILY 02/04/22 07/29/23 History topiramate 200 mg tablet 200 mg PO BID 02/04/22 07/29/23 History latanoprost 0.005 % eye drops 1 drp EACH EYE QHS 05/28/22 07/29/23 History multivitamin 1 tab PO DAILY 05/28/22 07/29/23 History budesonide 3 mg 9 mg (3 x 3 mg) PO DAILY #90 ea 07/29/23 07/29/23 Rx capsule,delayed,exten ded release colestipol 1 gram tablet 2 g (2 x 1 gram) PO BID #180 tabs 07/29/23 07/29/23 Rx pantoprazole 40 mg tablet,delayed 40 mg PO QAM #90 tabs 07/29/23 07/29/23 Rx release (Protonix) [facility] Medical History (Updated 07/25/22 @ 13:49 by Eileen Quintero NP, MORNING SHOW PRODUCER-C) Wears glasses Post-menopausal Arthritis High cholesterol Migraine headache History of diverticulitis Gastric reflux Non-smoker Diverticulitis Irritable bowel syndrome with diarrhea Depression Anxiety Frequent headaches Allergic rhinitis Surgical History (Reviewed 07/25/22 @ 13:24 by Eileen Quintero MORNING SHOW PRODUCER, MORNING SHOW PRODUCER-C) History of cholecystectomy Family History Mother Myocardial infarction Social History (Reviewed 07/25/22 @ 13:24 by Eileen Quintero MORNING SHOW PRODUCER, MORNING SHOW PRODUCER-C) Smoking Status: Never smoker HPI HPI Chief Complaint: f/u diarrhea Details: REDD BRANDT, is a 68 F who presents to the office today for follow up. OV 07.29.23 pt reports that her symptoms have improved, but she is still having diarrhea 1-4 times a day. Pt reports that she will wake up in the night needing to have a bm. Pt reports LLQ pain that comes and goes. Pt continues with Colestipol and Pantoprazole. ROS Const Constitutional: Positive for fatigue and headache(s); No fever(s) or weight change ENT ENT: Positive for headache(s); No difficulty swallowing Gastro GI: Positive for abdominal pain, bloating, diarrhea and excessive flatus; No belching, change in bowel habits, change in stool character, coffee ground emesis, constipation, cramping, heartburn, difficulty swallowing, feeling full early, incontinent of stools, Vomiting blood/hematemesis, Blood in stool, loose stools, Black,tarry stools, nausea/dyspepsia, pain with swallowing, vomiting or other Musc Musculoskeletal: Positive for joint pain, back pain, numbness, stiffness, tingling and Arthritis Skin Skin: Positive for dry skin and itchy eyes; No yellowing of the eye Neuro Neurology: Positive for headache(s), numbness and tingling Psych Psychiatric: No anxiety and No depression Endo Endocrine: Positive for fatigue; No weight change Aller/Imm Allergy/Immunologic: Positive for itchy eyes Joe/Lymp Hematologic/Lymphatic : No easy bleeding or easy bruising Exam Const General: cooperative, healthy appearing and comfortable Orientation: alert, awake and oriented x3 Assessment and Plan Assessment and Plan (1) Chronic diarrhea: Status: Chronic Plan: 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 This was determined because her fecal calprotectin was normal as well as her fecal elastase and fecal lactoferrin. Also her colonoscopy did not reveal any signs of microscopic colitis on biopsies of the terminal ileum and throughout the colon. Therefore we put her on treatment for bile induced diarrhea with colestipol 1 g p.o. twice daily. She is not having any nocturnal diarrhea at this time. She is actually feeling a lot better but has still been having diarrhea along with urgency. I will put her on budesonide 9 mg a day and increase her colestipol to 2 g p.o. twice daily. Pending orders: We may need an IBD SGI along with MR enterography to evaluate the small bowel. Next colonoscopy in 2025 for tubular adenomas (2) Gastric reflux: Status: Chronic Plan: Can now decrease pantoprazole 40 mg to QAM f/u 6 months. Medications: New budesonide DR-ER 9 mg (3 x 3 mg) PO DAILY 90 ea 0RF Changed From colestipol 1 g PO BID 180 tabs 3RF To colestipol 2 grams (2 x 1 gram) PO BID 180 tabs 3RF Refilled pantoprazo (more content not included)... Normal [facility] Stool lactoferrin detection by immunoassayOrdered By: Vivek Feliz on 06-07-2022 Lactoferrin IA Ql (Stl) [facility] Absolute lymphocyte countOrd ered By: Vivek Feliz on 06-06-2022 Lymphocytes Auto (Unsp spec) [#/Vol] 1.48 10*3/uL 0.83-4.51 [facility] Albumin Elph [Mass/Vol]Order ed By: Vivek Feliz on 06-06-2022 Albumin [Mass/Vol] 3.7 g/dL 2.9-4.4 [facility] Atypical perinuclear antineu trophil cytoplasmic antibodies measurementOrdered By: Vivek Feliz on 06-06-2022 Neutrophil cytoplasmic Ab.perinuclear.atypical IF (S) [Titer] <1:20 titer Neg:<1:20 [facility] Comment on above: The atypical pANCA p attern has been observed in asignificant percentage of patients with ulcerative colitis,primary sclerosing cholangitis and autoimmune hepatitis.Performed at: - [facility] [id number] Director: Tiburcio Lozano PhD, Phone: [phone] at: [facility] [id number] Director: Megan Hyman MD, Phone: [phone] Basophil percentageOrdered B y: Vivek Feliz on 06-06-2022 Basophil percentage < 0.2 AI 0.0-0.9 [facility] Basophils/100 WBC (Bld) 0.3 % 0-1 [facility] Bilirubin [Mass/Vol] 0.50 mg/dL 0.20-1.00 [facility] Comment on above: For patients on eltr ombopag therapy, use of Dimension [place] TBIL is not recommended. Chloride [Moles/Vol] 109 mmol/L 98-107 [facility] Cholesterol [Mass/Vol] 183 mg/dL <200 [facility] Comment on above: <200 mg/dL Desirable 200-240 mg/dL Borderline >240 mg/dL High Risk Eosinophils/100 WBC (Bld) 1.1 % 0-5 [facility] Glucose [Mass/Vol] 90 mg/dL 74-106 [facility] LDH [Catalytic activity/Vol] 152 U/L 84-246 [facility] Neutrophils (Bld) [#/Vol] 4.1 10*3/uL 2.0-7.7 [facility] Neutrophils/100 WBC (Bld) 67.3 % 47-70 [facility] Potassium [Moles/Vol] 3.2 mmol/L 3.5-5.1 [facility] Protein [Mass/Vol] 7.0 g/dL 6.4-8.2 [facility] Sodium [Moles/Vol] 141 mmol/L 136-145 [facility] Triglyceride [Mass/Vol] 108 mg/dL <199 [facility] Comment on above: The drugs N-Acetylcy steine and Metamizole may falsely depress this assay.Serum Triglycerides Reference Interval Normal <150 mg/dL Borderline high 150 - 199 mg/dL High 200 - 499 mg/dL Very High > or = 500 mg/dL WBC (Bld) [#/Vol] 6.1 10*3/uL 4.4-11.0 [facility] Blood erythrocytes count (nu mber/volume)Ordered By: Vivek Feliz on 06-06-2022 RBC (Bld) [#/Vol] 4.73 10*6/uL 4.2-5.4 [facility] Blood hemoglobin measurement (mass/volume)Ordered By: Vivek Feliz on 06-06-2022 Hemoglobin (Bld) [Mass/Vol] 14.9 g/dL 12.0-15. 0 [facility] Blood lymphocytes/100 leukoc ytesOrdered By: Vivek Feliz on 06-06-2022 Lymphocytes/100 WBC (Bld) 24.2 % 19-41 [facility] Blood monocytes/100 leukocyt esOrdered By: Vivek Feliz on 06-06-2022 Monocytes/100 WBC (Bld) 6.9 % 0-10 [facility] Blood platelet mean volumeOr dered By: Vivek Feliz on 06-06-2022 Platelet mean volume (Bld) [Entitic vol] 9.3 fL 6.2-12.0 [facility] Determination of erythrocyte mean corpuscular volume (MCV)Ordered By: Vivek Feliz on 06-06-2022 MCV (RBC) [Entitic vol] 92.4 fL 81-99 [facility] Erythrocyte sedimentation ra teOrdered By: Vivek Feliz on 06-06-2022 ESR (Bld) [Velocity] 12 mm/h 0-30 [facility] Hematocrit Auto (Bld) [Volum e fraction]Ordered By: Vivek Feliz on 06-06-2022 Hematocrit (Bld) [Volume fraction] 43.7 % 37-47 [facility] Interpretation of serum or p lasma protein pattern by immunofixation (narrative resultOrdered By: Vivek Feliz on 06-06-2022 Protein Fractions Immunofixation Tj [Interp] See comment [facility] Comment on above: Result: Not Observed Laboratory - Chemistry and C hemistry - challengeOrdered By: Vivek Feliz on 06-06-2022 ALP [Catalytic activity/Vol] 87 U/L 45-117 [facility] ALT [Catalytic activity/Vol] 24 U/L 13-56 [facility] CO2 [Moles/Vol] 24.0 mmol/L 21.0-32.0 [facility] Urea nitrogen/Creatinine [Mass ratio] 18.2 mg/mg 10-20 [facility] Laboratory - Hematology and Cell countsOrdered By: Vivek Feliz on 06-06-2022 Erythrocyte distribution width (RBC) [Entitic vol] 41.6 fL 35.1-43.9 [facility] Erythrocyte distribution width (RBC) [Ratio] 12.1 % 11.6-14.6 [facility] Immature granulocytes/100 WBC (Bld) 0.200 % 0.0-0.9 [facility] Comment on above: IG% - Immature Granu locytes (promyelocytes, myelocytes and metamyelocytes) > 1% indicates that a LEFT SHIFT is Present. MCH (RBC) [Entitic mass] 31.5 pg 27.0-32.0 [facility] Nucleated RBC/100 WBC (Bld) [Ratio] 0 % 0-5 [facility] Auto (RBC) [Mass/Vol]Or dered By: Vivek Friend on 06-06-2022 MCHC (RBC) [Mass/Vol] 34.1 g/dL 32-36 [facility] No Panel InformationOrdered By: Vivek Friend on 06-06-2022 Addendum Document Comment . [facility] Comment on above: Protein electrophore sis scan will follow via computer,mail, or catcher helper delivery. Centromere B Antibody <0.2 AI 0.0-0.9 [facility] Endomysial IgA Antibody Negative Negative [facility] Estimated GFR (MDRD) Amer 90 mL/min >60 [facility] Comment on above: GFR Calc Estimated GFR (MDRD) Non-Af Amer 74 mL/min >60 [facility] Comment on above: Non- GFR Calc Immunoglobulin E 7 IU/mL 6-495 [facility] Miscellaneous Test See comment [facility] Comment on above: TEST RESULT LIMITSIB D Expanded Panel Varsha 17 units 0-50 Negative <45 Equivocal 45 - 50 Positive >50 ACCA 0 units 0-90 Negative <80 Equivocal 80 - 90 Positive >90 ALCA 9 units 0-60 Negative <55 Equivocal 55 - 60 Positive >60 AMCA 18 units 0-100 Negative < 90 Equivocal 90 - 100 Positive >100 This test was developed and its performance characteristics determined by [facility]. It has not been cleared or approved by the Food and Drug Administration. The FDA has determined that such clearance or approval is not necessary.Atypical pANCA Negative Negative Comments Pattern is not suggestive of Inflammatory Bowel Disease TESTING PERFORMED AT [facility]. ORIGINAL REPORT ON FILE IN LAB CONTAINS ADDITIONAL TEST SITE INFORMATION. STUDENT ACCOUNTS MANAGER Antibody <0.2 AI 0.0-0.9 [facility] Platelets bldOrdered By: Karan Feliz on 06-06-2022 Platelets (Bld) [#/Vol] 239 10*3/uL 150-450 [facility] Serum DNA double strand anti body assay (units/volume)Ordered By: Vivek Feliz on 06-06-2022 DNA double strand Ab Qn (S) [IU]/mL 0-9 [facility] Comment on above: Negative <5 Equivoca l 5 - 9 Positive >9 Serum Antoinette-1 antibody assay (u nits/volume)Ordered By: Vivek Feliz on 06-06-2022 Antoinette-1 extractable nuclear Ab Qn (S) <0.2 AI 0.0-0.9 [facility] Serum Scl-70 extractable nuc lear antibody assay (units/volume)Ordered By: Vivek Feliz on 06-06-2022 SCL-70 extractable nuclear Ab Qn (S) <0.2 AI 0.0-0.9 [facility] Serum Resendez extractable nucl ear antibody detectionOrdered By: Vivek Feliz on 06-06-2022 Resendez extractable nuclear Ab Ql (S) <0.2 AI 0.0-0.9 [facility] Serum [id number] measu rement by electrophoresisOrdered By: Vivek Feliz on 06-06-2022 Alpha 1 globulin Elph [Mass/Vol] 0.3 g/dL 0.0-0.4 [facility] Alpha 1 globulin Elph [Mass/Vol] 0.8 g/dL 0.4-1.0 [facility] Serum classic neutrophil cyt oplasmic antibody assay (units/volume)Ordered By: Vivek Feliz on 06-06-2022 Neutrophil cytoplasmic Ab.classic Qn (S) <1:20 titer Neg:<1:20 [facility] Serum globulin measurement ( mass/volume)Ordered By: Vivek Feliz on 06-06-2022 Globulin (S) [Mass/Vol] 2.9 g/dL 2.2-3.9 [facility] Serum or plasma C reactive p rotein measurement (mass/volume)Ordered By: Vivek Feliz on 06-06-2022 CRP [Mass/Vol] mg/L 0.0-3.0 [facility] Comment on above: C-Reactive Protein ( CRP) provides useful information for thediagnosis, therapy and monitoring of inflammatory processesand associated diseases. For the evaluation of Relative Riskfor Cardiovascular Disease, a High Sensitivity CRP (HSCRP)should be ordered. Serum or plasma IgA measurem ent (mass/volume)Ordered By: Vivek Feliz on 06-06-2022 IgA [Mass/Vol] 157 mg/dL 87-352 [facility] Serum or plasma IgG measurem ent (mass/volume)Ordered By: Vivek Feliz on 06-06-2022 IgG [Mass/Vol] 917 mg/dL 586-1602 [facility] Serum or plasma IgM measurem ent (mass/volume)Ordered By: Vivek Feliz on 06-06-2022 IgM [Mass/Vol] 33 mg/dL 26-217 [facility] Serum or plasma albumin drew urement (mass/volume)Ordered By: Vivek Feliz on 06-06-2022 Albumin [Mass/Vol] 3.8 g/dL 3.2-5.0 [facility] Serum or plasma albumin/glob ulin mass ratioOrdered By: Vivek Feliz on 06-06-2022 Albumin/Globulin [Mass ratio] 1.2 {ratio} 0.9-2.4 [facility] Serum or plasma beta globuli n measurement by electrophoresis (mass/volume)Ordered By: Vivek Feliz on 06-06-2022 Beta globulin Elph [Mass/Vol] 0.9 g/dL 0.7-1.3 [facility] Serum or plasma calcium drew urement (mass/volume)Ordered By: Vivek Feliz on 06-06-2022 Calcium [Mass/Vol] 9.3 mg/dL 8.5-10.1 [facility] Serum or plasma cholesterol in HDL measurement (mass/volume)Ordered By: Vivek Feliz on 06-06-2022 Cholesterol in HDL [Mass/Vol] 66 mg/dL >40 [facility] Comment on above: The drugs N-Acetylcy steine and Metamizole may falsely depress this assay. Reference Range HDL <40 mg/dL Low HDL Cholesterol HDL >or= 60 mg/dL High HDL Cholesterol Serum or plasma cholesterol in VLDL measurement (mass/volume)Ordered By: Vivek Feliz on 06-06-2022 Cholesterol in VLDL [Mass/Vol] 22 mg/dL 5-40 [facility] Serum or plasma creatinine m easurement (mass/volume)Ordered By: Vivek Feliz on 06-06-2022 Creatinine [Mass/Vol] 0.82 mg/dL 0.55-1.02 [facility] Comment on above: The validity of the calculated GFR & GFRAA in patients over 70 years has not been determined. Clinical correlation is essential. Serum or plasma gamma globul in measurement by electrophoresis (mass/volume)Ordered By: Vivek Feliz on 06-06-2022 Gamma globulin Elph [Mass/Vol] 0.9 g/dL 0.4-1.8 [facility] Serum or plasma immunoelectr ophoresis interpretation (nominal result)Ordered By: Vivek Feliz on 06-06-2022 Interpretation IEP [Interp] Comment: . [facility] Comment on above: Presence of monoclon al protein is unclear at this time. Suggestrepeat in 3 to 6 months if clinically indicated. Serum or plasma low density lipoprotein (LDL) cholesterol measurement (mass/volume)Ordered By: Vivek Feliz on 06-06-2022 Cholesterol in LDL [Mass/Vol] 95 mg/dL 0-130 [facility] Serum or plasma urea nitroge n measurement (mass/volume)Ordered By: Vivek Feliz on 06-06-2022 Urea nitrogen [Mass/Vol] 15 mg/dL 7-18 [facility] Serum perinuclear neutrophil cytoplasmic antibody titer by immunofluorescenceOrdered By: Vivek Feliz on 06-06-2022 Neutrophil cytoplasmic Ab.perinuclear IF (S) [Titer] <1:20 titer Neg:<1:20 [facility] Comment on above: The presence of posi tive fluorescence exhibiting P-ANCA orC-ANCA patterns alone is not specific for the diagnosis ofWegener's Granulomatosis (WG) or microscopic polyangiitis.Decisions about treatment should not be based solely onANCA IFA results. The [employer] ANCA Group Consensusrecommends follow up testing of positive sera with both WV-3 and MPO-ANCA enzyme immunoassays. As many as 5% serumsamples are positive only by EIA. Ref. AM J Clin Rfzrbn1521;111:507-513. Serum tissue transglutaminas e IgA antibody assay (units/volume)Ordered By: Vivek Feliz on 06-06-2022 tTG IgA Qn (S) <2 U/mL 0-3 [facility] Comment on above: Negative 0 - 3 Weak Positive 4 - 10 Positive >10 Tissue Transglutaminase (tTG) has been identified as the endomysial antigen. Studies have demonstr- ated that endomysial IgA antibodies have over 99% specificity for gluten sensitive enteropathy. Thin prep Papanicolaou smear with manual screeningOrdered By: Vivek Feliz on 06-06-2022 Thin prep Papanicolaou smear with manual screening 15 U/L 15-37 [facility] Thin prep Papanicolaou smear with manual screening 8 5-15 [facility] Thin prep Papanicolaou smear with manual screening 1.3 0.7-1.7 [facility] Total protein bloodOrdered B y: Vivek Feliz on 06-06-2022 Protein [Mass/Vol] 6.6 g/dL 6.0-8.5 [facility] Absolute lymphocyte countOrd ered By: Dr. Cleaning on 01-31-2022 Lymphocytes Auto (Unsp spec) [#/Vol] 1.85 10*3/uL 0.83-4.51 [facility] Basophil percentageOrdered B y: Dr. Cleaning on 01-31-2022 Basophils/100 WBC (Bld) 0.3 % 0-1 [facility] Bilirubin [Mass/Vol] 0.60 mg/dL 0.20-1.00 [facility] Comment on above: For patients on eltr ombopag therapy, use of Dimension [place] TBIL is not recommended. Chloride [Moles/Vol] 109 mmol/L 98-107 [facility] Cholesterol [Mass/Vol] 189 mg/dL <200 [facility] Comment on above: <200 mg/dL Desirable 200-240 mg/dL Borderline >240 mg/dL High Risk Eosinophils/100 WBC (Bld) 1.3 % 0-5 [facility] Glucose [Mass/Vol] 82 mg/dL 74-106 [facility] Neutrophils (Bld) [#/Vol] 3.8 10*3/uL 2.0-7.7 [facility] Neutrophils/100 WBC (Bld) 60.1 % 47-70 [facility] Potassium [Moles/Vol] 3.6 mmol/L 3.5-5.1 [facility] Protein [Mass/Vol] 6.5 g/dL 6.4-8.2 [facility] Sodium [Moles/Vol] 142 mmol/L 136-145 [facility] Triglyceride [Mass/Vol] 126 mg/dL <199 [facility] Comment on above: The drugs N-Acetylcy steine and Metamizole may falsely depress this assay.Serum Triglycerides Reference Interval Normal <150 mg/dL Borderline high 150 - 199 mg/dL High 200 - 499 mg/dL Very High > or = 500 mg/dL WBC (Bld) [#/Vol] 6.3 10*3/uL 4.4-11.0 [facility] Blood erythrocytes count (nu mber/volume)Ordered By: Dr. Cleaning on 01-31-2022 RBC (Bld) [#/Vol] 4.76 10*6/uL 4.2-5.4 [facility] Blood hemoglobin measurement (mass/volume)Ordered By: Dr. Cleaning on 01-31-2022 Hemoglobin (Bld) [Mass/Vol] 14.5 g/dL 12.0-15. 0 [facility] Blood lymphocytes/100 leukoc ytesOrdered By: Dr. Cleaning on 01-31-2022 Lymphocytes/100 WBC (Bld) 29.3 % 19-41 [facility] Blood monocytes/100 leukocyt esOrdered By: Dr. Cleaning on 01-31-2022 Monocytes/100 WBC (Bld) 8.7 % 0-10 [facility] Blood platelet mean volumeOr dered By: Dr. Cleaning on 01-31-2022 Platelet mean volume (Bld) [Entitic vol] 9.5 fL 6.2-12.0 [facility] Determination of erythrocyte mean corpuscular volume (MCV)Ordered By: Dr. Cleaning on 01-31-2022 MCV (RBC) [Entitic vol] 93.3 fL 81-99 [facility] Hematocrit Auto (Bld) [Volum e fraction]Ordered By: Dr. Cleaning on 01-31-2022 Hematocrit (Bld) [Volume fraction] 44.4 % 37-47 [facility] [facility] and C hemistry - challengeOrdered By: Dr. Cleaning on 01-31-2022 ALP [Catalytic activity/Vol] 83 U/L 45-117 [facility] ALT [Catalytic activity/Vol] 23 U/L 13-56 [facility] CO2 [Moles/Vol] 25.0 mmol/L 21.0-32.0 [facility] Globulin (S) [Mass/Vol] 2.8 g/dL 2.2-4.2 [facility] Urea nitrogen/Creatinine [Mass ratio] 17.1 mg/mg 10-20 [facility] Laboratory - Hematology and Cell countsOrdered By: Dr. Cleaning on 01-31-2022 Erythrocyte distribution width (RBC) [Entitic vol] 42.1 fL 35.1-43.9 [facility] Erythrocyte distribution width (RBC) [Ratio] 12.2 % 11.6-14.6 [facility] Immature granulocytes/100 WBC (Bld) 0.300 % 0.0-0.9 [facility] Comment on above: IG% - Immature Granu locytes (promyelocytes, myelocytes and metamyelocytes) > 1% indicates that a LEFT SHIFT is Present. MCH (RBC) [Entitic mass] 30.5 pg 27.0-32.0 [facility] Nucleated RBC/100 WBC (Bld) [Ratio] 0 % 0-5 [facility] MCHC Auto (RBC) [Mass/Vol]Or dered By: Dr. Cleaning on 01-31-2022 MCHC (RBC) [Mass/Vol] 32.7 g/dL 32-36 [facility] No Panel InformationOrdered By: Dr. Cleaning on 01-31-2022 Estimated GFR (MDRD) Amer 90 mL/min >60 [facility] Comment on above: GFR Calc Estimated GFR (MDRD) Non-Af Amer 75 mL/min >60 [facility] Comment on above: Non- GFR Calc Platelets bldOrdered By: Dr. Cleaning on 01-31-2022 Platelets (Bld) [#/Vol] 247 10*3/uL 150-450 [facility] Serum or plasma albumin drew urement (mass/volume)Ordered By: Dr. Cleaning on 01-31-2022 Albumin [Mass/Vol] 3.7 g/dL 3.2-5.0 [facility] Serum or plasma albumin/glob ulin mass ratioOrdered By: Dr. Cleaning on 01-31-2022 Albumin/Globulin [Mass ratio] 1.3 {ratio} 0.9-2.4 [facility] Serum or plasma calcium drew urement (mass/volume)Ordered By: Dr. Cleaning on 01-31-2022 Calcium [Mass/Vol] 8.3 mg/dL 8.5-10.1 [facility] Serum or plasma cholesterol in HDL measurement (mass/volume)Ordered By: Dr. Cleaning on 01-31-2022 Cholesterol in HDL [Mass/Vol] 79 mg/dL >40 [facility] Comment on above: The drugs N-Acetylcy steine and Metamizole may falsely depress this assay. Reference Range HDL <40 mg/dL Low HDL Cholesterol HDL >or= 60 mg/dL High HDL Cholesterol Serum or plasma cholesterol in VLDL measurement (mass/volume)Ordered By: Dr. Cleaning on 01-31-2022 Cholesterol in VLDL [Mass/Vol] 25 mg/dL 5-40 [facility] Serum or plasma creatinine m easurement (mass/volume)Ordered By: Dr. Cleaning on 01-31-2022 Creatinine [Mass/Vol] 0.82 mg/dL 0.55-1.02 [facility] Comment on above: The validity of the calculated GFR & GFRAA in patients over 70 years has not been determined. Clinical correlation is essential. Serum or plasma low density lipoprotein (LDL) cholesterol measurement (mass/volume)Ordered By: Dr. Cleaning on 01-31-2022 Cholesterol in LDL [Mass/Vol] 85 mg/dL 0-130 [facility] Serum or plasma urea nitroge n measurement (mass/volume)Ordered By: Dr. Cleaning on 01-31-2022 Urea nitrogen [Mass/Vol] 14 mg/dL 7-18 [facility] Thin prep Papanicolaou smear with manual screeningOrdered By: Dr. Cleaning on 01-31-2022 Thin prep Papanicolaou smear with manual screening 10 U/L 15-37 [facility] Thin prep Papanicolaou smear with manual screening 8 5-15 [facility] Vital Signs Date Time Vital Sign Value Performing Clinician Bari willingham 05-30-2022 09:10-0400 Diastolic blood pressure 59 mm[Hg] Dr. Ilda Cleaning Work Phone: [facility] 05-30-2022 09:10-0400 Heart rate 69 /min Dr. Ilda Cleaning Work Phone: [facility] 05-30-2022 09:10-0400 Respiratory rate 16 /min Dr. Ilda Cleaning Work Phone: [facility] 05-30-2022 09:10-0400 SaO2% (BldA) [Mass fraction] 98 % Dr. Ilda Cleaning Work Phone: [facility] 05-30-2022 09:10-0400 Systolic blood pressure 92 mm[Hg] Dr. Ilda Cleaning Work Phone: [facility] 05-30-2022 08:56-0400 Body temperature 97.1 [degF] Dr. Ilda Cleaning Work Phone: [facility] 05-30-2022 07:25-0400 Body height 167.[address] Ilda Cleaning Work Phone: [facility] 05-30-2022 07:25-0400 Body mass index (BMI) [Ratio] 25.2 kg/m2 Dr. Ilda Cleaning Work Phone: [facility] 05-30-2022 07:25-0400 Body weight [address] Ilda Cleaning Work Phone: [facility] Encounters Encounter Date Encounter Type Care Provider Facility Start: 02-06-2024 ambulatory Vivek Feliz Facility :[facility] Start: 07-29-2023 End: 07-29-2023 ambulatory Ilda Cleaning Facility:[facility] Start: 06-12-[address] Ilda Cleaning Work Phone: [facility] Start: 06-07-2022 End: 06-07-[address] Ilda Cleaning Work Phone: [facility] Work Phone: Start: 06-07-2022 End: 06-07-[address] Ilda Cleaning Work Phone: [facility] Start: 06-06-2022 End: 06-06-[address] Ilda Cleaning Work Phone: [facility] Work Phone: Start: 06-06-2022 End: 06-06-[address] Ilda Cleaning Work Phone: [facility] Start: 05-30-2022 Non-patient / Non-visit Dr. Ilda Cleaning Work Phone: [facility] Start: 05-30-2022 End: 05-30-2022 Admission to same day surgery center Dr. Ilda Cleaning Work Phone: [facility]-Endoscopy Start: 05-30-2022 End: 05-30-[address] Ilda Cleaning Work Phone: [facility] Work Phone: Start: 05-17-2022 End: 05-17-[address] Ilda Cleaning Work Phone: [facility] Start: 01-31-2022 End: 01-31-2022 ambulatory [facility] Work Phone: Start: 01-31-2022 End: 01-31-2022 Patient encounter procedure [facility] Start: 01-25-2022 End: 01-25-2022 ambulatory [facility] Work Phone: Start: 01-25-2022 End: 01-25-2022 Patient encounter procedure [facility]-Outpatient Breast Imaging Procedures Date Procedure Procedure Detail Performing Clinician Start: 06-12-2022 Computed tomography of abdomen and pelvis with contrast Dr. Ilda Cleaning Work Phone: Start: 05-30-[address] Ilda pham Work Phone: Start: 01-25-2022 Screening mammography Lactoferrin measurement Dr. Ilda Cleaning Work Phone: Plan of Treatment Date Care Activity Detail Author Start: 05-30-2022 Colonoscopy w/biopsy single/multiple COLONOSCOPY AND BIOPSY [facility] Start: 05-30-2022 Colsc flx w/rmvl of tumor polyp lesion snare tq COLONOSCOPY W/LESION REMOVAL [facility] Start: 05-30-2022 Egd transoral biopsy single/multiple EGD BIOPSY SINGLE/MULTIPLE [facility] Start: 05-30-2022 Patient discharge [facility] C reactive protein [Mass/volume] in Serum or Plasma [facility] CBC W Auto Different ial panel - Blood [facility] Celiac disease screen [facility] Clostridioides diffi cile DNA [Presence] in Unspecified specimen by ALONZO with probe detection [facility] Elastase, pancreatic (el-1), fecal; quantitative [facility] Erythrocyte sediment ation rate [facility] Fat [Presence] in Stool [facility] Gastrointestinal pat hogens panel - Stool by ALONZO with probe detection [facility] Immunoglobulin measurement [facility] Lactate dehydrogenas e measurement [facility] Lactoferrin [Presenc e] in Stool by Immunoassay [facility] Lipid 1996 panel - S denzel or Plasma [facility] Ova and parasites identified in Unspecified specimen by Light microscopy [facility] Patient referral [facility] Work Phone: Procedure [facility] Protein measurement [facility] Serum immunofixation [facility] Immunizations Immunization Date Immunization Notes Care Provider Fa cility 06-02-2020 Covid (Pfizer) [facility] 05-12-2020 Covid (Pfizer) [facility] Payers Date Payer Category Payer Self-pay [id number] 2022 Medicare [id number] 2022 Unknown [id number] 2012 Unknown AIKEN RULE [id number] Unknown [id number] Unknown [id number] Social History Date Type Detail Facility Start: 08-12-2013 End: 05-28-2022 Tobacco smoking status NHIS Unknown if ever smoked [facility] Start: 1955 Sex Assigned At Female [facility] Goals Date Patient Goal Desired Activity /State Mental Status Date Assessment Result Facility 05-30-2022 Cognitive function Level Of Consciousness Drowsy [facility] Work Phone: 05-30-2022 Cognitive function Voice/Name [facility] Work Phone: Procedure note 05-30-2022 Note Date & Type Note Facility 05-30-2022 Procedure note [facility] Procedure note 05-30-2022 Note Date & Type Note Facility 05-30-2022 Procedure note [facility] Procedure note 05-30-2022 Note Date & Type Note Facility 05-30-2022 Procedure note [facility] Procedure note 05-30-2022 Note Date & Type Note Facility 05-30-2022 Procedure note [facility] Evaluation note Note Date & Type Note Facility Evaluation note No assessment information availa ble [facility] Work Phone: Evaluation note Note Date & Type Note Facility Evaluation note Diagnosis Onset Date Chronic diarrhea chronic [facility] Work Phone: History and physical note Note Date & Type Note Facility History and physical note Note Date/Time May 30, 2022 7:[address] [facility] Records Department [address] [place] [address] History & Physical Exam 05/30/2246 MR#: [id number] Acct: [id number] Name: REDD BRANDT Rep #:[id number] : 1955 67 From: Vivek Friend DO PCP: Dr. Ilda Cleaning, DO Status:[facility] Location: [place] [address] History and Physical Date of Admission: 05/30/22 67 F who presents to the office today for PMH anxiety/depression; hyperlipidemia. PSH cholecystectomy *[facility] established 05.17.22 with referral from PCP. Many years ago seen by Dr. Lindsay who she reports diagnosed her with diverticulosis and IBS-D; a medicationwas used at this time that was helpful but cannot remember the names. Postprandial and urgent watery stools for many years with urgency incontinence and intermittent LLQ pain, sometimes relieved by BM. She has attempted many OTC medication that were ineffective. GERD is also an intermittent issue. She does not take medication for this; sleeps with HOB elevated. ROS Const Constitutional: No anorexia, fatigue, fever(s), weight change or sleep problems Eyes Eyes: No change in vision ENT ENT: No abnormal hearing, difficulty swallowing, mouth lesions, tongue swelling or throat swelling Resp Respiratory: No cough or shortness of breath Cardio Cardiology: No chest pain at rest, chest pain with exertion, shortness of breathor dyspnea on exertion Gastro GI: No difficulty swallowing Genitourinary-Female: No difficulty urinating or burning urination Musc Musculoskeletal: No joint pain, joint swelling, muscle weakness or decreased muscle mass Skin Skin: No hair loss in leg, yellowing of the eye, itchy eyes, rash, skin ulcer orskin swelling Neuro Neurology: No abnormal hearing, abnormal movements, confusion, unsteady gait/balance or memory loss Psych Psychiatric: No anxiety, No confusion and No memory loss Endo Endocrine: No fatigue or weight change Aller/Imm Allergy/Immunologic: No itchy eyes, throat swelling or tongue swelling Joe/Lymp Hematologic/Lymphatic: No easy bleeding, easy bruising or enlarged lymph nodes Exam Const General: cooperative and comfortable Nutritional Appearance: average body habitus and well nourished HENMT Head: normal to inspection Ears: hearing grossly normal bilaterally Nose: external nose normal Face and sinus: normal facial exam Mouth: oral mucosae normal Throat: posterior oropharynx normal Eyes General: appearance normal, both eyes and all related structures Neck Neck: normal visual inspection Chest Chest palpation & inspection: normal inspection of the chest and normal palpation of entire chest wall Resp Effort & Inspection: normal respiratory effort Auscultation: Bilateral: Clear to Auscultation Cardio Palpation: normal PMI Rate: regular rate Rhythm: regular rhythm GI Inspection: normal to inspection Auscultation: normal bowel sounds Percussion: normal to percussion Palpation: no hepatosplenomegaly Skin General: no rashes or lesions noted Neuro General: patient alert Extrem General: normal to inspection Psych Affect: normal affect Quality Reporting Tobacco Screening ([facility] 138) Smoking Status: Never smoker Assessment and Plan Assessment and Plan (1) Chronic diarrhea: ?Status:?Chronic ?Plan: Differential diagnosis for chronic diarrhea does include inflammatory bowel disease including Crohn's disease.? Also the different diagnosis would be other secretory diarrhea such as ischemic colitis, microscopic colitis, lymphocytic colitis, celiac sprue, infectious colitis or enterocolitis.? We will perform biochemical work-up and she may need repeat upper and lower endoscopy in the future.? Pending biochemical work-up and stool test she may also need small bowel evaluation.? As for now we will see what her biochemical work-up shows andfurther recommendation to follow. ? ? ? Orders: Orders Comprehensive Metabolic Profil Today E78.5 - Hyperlipidemia, unspecified, K52.9 - Noninfective gastroenteritis and colitis, unspecified ? CRP Today E78.5 - Hyperlipidemia, unspecified, K52.9 - Noninfective gastroenteritis and colitis, unspecified ? LDH Today E78.5 - Hyperlipidemia, unspecified, K52.9 - Noninfective gastroenteritis and colitis, unspecified ? Lipid Profile Today E78.5 - Hyperlipidemia, unspecified, K52.9 - Noninfective gastroenteritis and colitis, unspecified ? CBC W/Diff, Automated Today E78.5 - Hyperlipidemia, unspecified, K52.9 - Noninfective gastroenteritis and colitis, unspecified ? Erythrocyte Sed Rate Today E78.5 - Hyperlipidemia, unspecified, K52.9 - Noninfective gastroenteritis and colitis, unspecified ? [place] Comprehensive Panel Today E78.5 - Hyperlipidemia, unspecified, K52.9 - Noninfective gastroenteritis and colitis, unspecified ? Calprotectin, Stool Today E78.5 - Hyperlipidemia, unspecified, K52.9 - Noninfective gastroenteritis and colitis, unspecified ? Fecal Fat, Qualitative Today E78.5 - Hyperlipidemia, unspecified, K52.9 - Noninfective gastroenteritis and colitis, unspecified ? OVA+PARA w/Giardia EIA [id number] Today E78.5 - Hyperlipidemia, unspecified, K52.9 -Noninfective gastroenteritis and colitis, unspecified ? CDIFF (PCR) Today E78.5 - Hyperlipidemia, unspecified, K52.9 - Noninfective gastroenteritis and colitis, unspecified ? ENTERIC PATHOGEN PANEL STOOL Today E78.5 - Hyperlipidemia, unspecified, K52.9 - Noninfective gastroenteritis and colitis, unspecified, K58.9 - Irritable bowel syndrome without diarrhea ? Stool Lactoferrin/WBC Today E78.5 - Hyperlipidemia, unspecified, K52.9 - Noninfective gastroenteritis and colitis, unspecified ? ANCA Today E78.5 - Hyperlipidemia, unspecified, K52.9 - Noninfective gastroenteritis and colitis, unspecified ? Celiac Disease Profile Today E78.5 - Hyperlipidemia, unspecified, K52.9 - Noninfective gastroenteritis and colitis, unspecified ? Immunoglobulins G/A/M/E Today E78.5 - Hyperlipidemia, unspecified, K52.9 - Noninfective gastroenteritis and colitis, unspecified ? TRAE + Protein Elect, Serum Today E78.5 - Hyperlipidemia, unspecified, K52.9 - Noninfective gastroenteritis and colitis, unspecified ? Pancreatic Elastase, Fecal Today E78.5 - Hyperlipidemia, unspecified, K52.9 - Noninfective gastroenteritis and colitis, unspecified ? Miscellaneous Lab Procedure Today E78.5 - Hyperlipidemia, unspecified, K52.9 - Noninfective gastroenteritis and colitis, unspecified ? I have examined the patient and the H&P has been reviewed. There are no clinicalchanges since date of exam. 05/30/22 0746 <Electronically signed by Vivek Feliz DO> Cosigner Signature (if applicable): CC: Dr. Ilda Cleaning DO; Vivek Feliz, ~ Signed [facility] Work Phone: Chief Complaint and Reason for Visit Chief Complaint SCREENING Chief Complaint Consult Reason for Visit Chronic diarrhea Chief Complaint Consult EORDER EORDER Reason for Visit Chronic diarrhea Chief Complaint Consult EORDER EORDER ABD PAIN Reason for Visit Chronic diarrhea Advance Directives No Advanced Directives Records Found Advance Directive Response Recorded Date/ Time Name of Medical Power of Senior Applications Developer CHANTELLE RED May 28, 2022 3:26pm Living Will Yes May 28, 2022 3:26pm Power of Senior Applications Developer Yes May 28 3:26pm Summary Purpose Family History No Family History Records Found Additional Source Comments Goals (unrecognized section and content) Goals may be documented in a n alternate sectionGoals may be documented in an alternate section Care Teams (unrecognized sec tion and content) Team Status: Active Member Role Status Dates Dr. Ilda Cleaning DO Family Provider Active Dr. Ilda Cleaning DO Primary Care Provider Active Team Status: Inactive Member Role Status Dates Dr. Ilda Cleaning DO Primary Care Provider, Referring P rovider Active Dr. Vivek Feliz DO Attending Provider Active Team Status: Active Member Role Status Dates Dr. Ilda Cleaning DO Primary Care Provider, Referring P rovider Active Dr. Vivek Feliz DO Attending Provider, Other Prov ider Active Team Status: Inactive Member Role Status Dates Dr. Ilda Cleaning DO Primary Care Provide r, Attending Provider, Referring Provider Active Team Status: Inactive Member Role Status Dates Dr. Ilda Cleaning DO Primary Care Provider Active Dr. Vivek Feliz DO Attending Provider, Referring Provider Active Team Status: Active Member Role Status Dates Dr. Ilda Cleaning DO Primary Care Provider Active Dr. Vivek Feliz DO Attending Provider, Referring Provider Active Team Status: Active Member Role Status Dates Dr. Ilda Cleaning DO Primary Care Provider Active Dr. Vivek Feliz DO Attending Provider Active INFORMATION SOURCE (unrecogn ized section and content) DATE CREATED AUTHOR 02/05/2024 [facility] FOR RECORDS PERTAINING TO PATIENTS WHO ARE OR HAVE BEEN ENROLLED IN A CHEMICAL DEPENDENCY/SUBSTANCEABUSE PROGRAM, SOME INFORMATION MAY BE OMITTED. This clinical summary was aggregated from multiple sources. Caution should be exercised in using it in the provision of clinical care. This summary normalizes information from multiple sources, and as a consequence, information in this document may materially change the coding, format and clinical context of patient data. In addition, data may be omitted in some cases. CLINICAL DECISIONS SHOULD BE BASED ON THE PRIMARY CLINICAL RECORDS. [facility] [employer] [facility]. provides no warranty or guarantee of the accuracy or completeness of information in this document.
[2024-08-10 08:08] LABS: Anti-Centromere B Ab <0.2 AI (0.0-0.9); Anti-Chromatin <0.2 AI (0.0-0.9); Anti-Jo <0.2 AI (0.0-0.9); Anti-Scleroderma-70 AB <0.2 AI (0.0-0.9); Anti-dsDNA Ab <1 IU/mL (0-9); Beef <0.10 kU/L (Class 0); Chocolate <0.10 kU/L (Class 0); Codfish <0.10 kU/L (Class 0); Corn <0.10 kU/L (Class 0); Egg, Whole <0.10 kU/L (Class 0); Milk (Cow) <0.10 kU/L (Class 0); Mussels <0.10 kU/L (Class 0); Peanut <0.10 kU/L (Class 0); Pork <0.10 kU/L (Class 0); RNP Ab <0.2 AI (0.0-0.9); SJOGREN'S Anti-SS-A test < 0.2 AI (0.0-0.9); SJOGREN'S Anti-SS-B test < 0.2 AI (0.0-0.9); Salmon <0.10 kU/L (Class 0); Shrimp <0.10 kU/L (Class 0); Smith Ab <0.2 AI (0.0-0.9); Soybean <0.10 kU/L (Class 0); Tuna <0.10 kU/L (Class 0); Wheat <0.10 kU/L (Class 0)
== END | disposition home or self-care (01) ==
LOC: LAB 09:32
PROVIDERS: PCP Family Medicine
DX: R10.9 Unspecified abdominal pain (principal); K52.9 Noninfective gastroenteritis and colitis, unspecified
CPT/HCPCS: 36415; 80053; 85025; 85652; 86003; 86005; 86140; 86225; 86235

== ENCOUNTER → 2024-08-10 | Outpatient (CLI) | payer MEDICARE, OTHER, SELFPAY ==
[2024-08-12 03:07] LABS: Calprotectin, Stool 150 ug/g (0-120)
[2024-08-12 07:07] LABS: Pancreatic Elastase, Fecal > 800 (>200)
== END | disposition home or self-care (01) ==
LOC: LABSPEC 09:40
PROVIDERS: PCP Family Medicine
DX: R10.9 Unspecified abdominal pain (principal); K52.9 Noninfective gastroenteritis and colitis, unspecified
CPT/HCPCS: 82653; 83630; 83993

== ENCOUNTER 2024-11-10 11:41 | Day surgery (SDC) | payer MEDICARE, OTHER, SELFPAY ==
[2024-11-10] VITALS (8 sets, daily range): BP systolic 83–101; BP diastolic 56–64; PULSE 76–84; RESP 16; TEMP 36.2–36.6; O2SAT 96–98; BMI 22.7
[2024-11-10] MEDS: Lactated Ringers 1,000 ML 15 ML IV (12:11)
--- NOTE | 2024-11-10 12:44 | PCM.PRE.AN2 ---
ASA Classification* ASA Classification ASA Classification: 2 Assessment & Plan Anesthesia* Anesthesia Assessment Anesthesia Assessment: Discussed sedation and/or anesthesia options, risks, benefits, and alternatives with patient/parents/legal guardian/POA. Questions invited. The patient/parents/legal guardian/POA seems to understand and agrees to proceed with anesthesia plan. Reviewed the physical assessment, medical history, allergy history and patient home medications list prior to surgery/procedure/anesthetic and documented any changes. Performed airway and anesthesia risk assessments. Anesthesia Type Anesthesia Type: MAC History Source History Obtained from:: Patient and Chart Anesthesia Focused Assessment* Temperature: 97.8 F Pulse Rate: 84 Blood Pressure: 101/64 Respiratory Rate: 16 Pulse Ox: 98 Oxygen Delivery Method: Room Air Airway Assessment Mouth opens: >3 cm Mallampati Score: II Teeth Condition: Intact and Missing Neck Range of motion (ROM): Full ROM Labs Anesthesia Preop lab: CBC WBC 6.5 K/mm3 (4.4-11.0) 08/06/24 09:08/06/24 RBC 4.55 M/mm3 (4.2-5.4) 08/06/24 09:35 08/06/24 Hgb 14.0 g/dL (12.0-15.0) 08/06/24 09:35 08/06/24 Hct 42.2 % (37-47) 08/06/24 09:35 08/06/24 Plt Count 226 K/mm3 (150-450) 08/06/24 09:35 08/06/24 CHEMISTRY Potassium 3.6 mmol/L (3.3-5.1) 08/06/24 09:35 08/06/24 Sodium 140 mmol/L (133-145) 08/06/24 09:35 08/06/24 BUN 10 mg/dL (4-19) 08/06/24 09:35 08/06/24 Creatinine 0.75 mg/dL (0.70-1.20) 08/06/24 09:35 08/06/24 Glucose 96 mg/dL (70-99) 08/06/24 09:35 08/06/24 TSH 2.43 uIU/mL (0.358-3.74) 08/12/13 07:20 08/12/13 COAG Pre-Assessment Diagnosis/Proposed Procedure Planned Operative Procedure(s): COLONOSCOPY Anesthesia History 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 When Was Last Pacemaker Check QUESTION #4 FULL TEXT: You/Your Family Experience fever (hyperthermia) with Anesthesia Last Oral Intake Last Oral intake: Last Oral Intake NPO since 09:45 11/10/24 12:11 Meds taken in AM with sips of No 11/10/24 12:11 water? Meds patient instructed to take am of surgery PONV PONV - lithographic stripper: PONV - lithographic stripper Female Yes 11/05/24 11:11 HX of Motion Sickness No 11/05/24 11:11 HX of N/V After Surgery No 11/05/24 11:11 Non-Smoker Yes 11/05/24 11:11 Duration of Surgery greater No 11/05/24 11:11 than 60 minutes Number of Risk Factors 2 11/05/24 11:11 PONV Score Moderate Risk 11/05/24 11:11 Height & Weight Height & Weight: Anesthesia: Height & Weight Height 5 ft 5 in 11/10/24 12:11 Weight: 62 kg 11/10/24 12:11 Body Mass Index (BMI) 22.7 11/10/24 12:11 Respiratory Assessment Respiratory Assessment - lithographic stripper: Respiratory Tract Infection Hx - lithographic stripper Hx Respiratory Tract Infection No 11/05/24 11:11 STOP Sleep Apnea STOP Sleep Apnea - lithographic stripper: STOP Sleep Apnea - lithographic stripper Hx Hypertension No 11/05/24 11:11 Hx Sleep Apnea No 11/05/24 11:11 CPAP BIPAP Do you snore loudly (louder No 11/05/24 11:11 than talking or can be heard Do you often feel tired/ No 11/05/24 11:11 fatigued/ sleepy during daytime? Has anyone observed you stop No 11/05/24 11:11 breathing during sleep? STOP Results Negative 11/05/24 11:11 QUESTION #5 FULL TEXT : Do you snore loudly (louder than talking or can be heard through closed doors)? 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 Specify any problems Hx of Preganancy in last 3 No 11/05/24 11:11 Months Nurse Filling Out Transfusion [facility] 11/05/24 11:11 & Questions: Date: 11/05/24 11/05/24 11:11 Time: 11:18 11/05/24 11:11 Patient unable to answer at this time (ie. confused, unrespo /Reproduction History /Reproductive History - lithographic stripper: /Reproductive Hx- lithographic stripper Hx Now No 11/05/24 11:11 Gestational Age (in weeks): EDC: Hx Hx Para Hx Section SAB Active Medications Active Medications: Current Medications Generic Name Dose Route Start Last Admin Trade Name Freq PRN Reason Stop Dose Admin Lactated Ringer's 1,000 mls @ 15 mls/hr 11/10/24 12:00 11/10/24 12:11 IV 15 mls/hr .Q48H ANABEL Administration PFSH Medical History History of steroid therapy Chronic cough History of stress test Wears glasses Post-menopausal Arthritis High cholesterol Migraine headache History of diverticulitis Gastric reflux Non-smoker Diverticulitis Irritable bowel syndrome with diarrhea Depression Anxiety Frequent headaches Allergic rhinitis Home Medications ?Medication ?Instructions ?Recorded ?Last Taken ?Type atorvastatin 40 mg tablet 40 mg PO DAILY 02/04/22 11/09/24 History bupropion HCl 100 mg tablet 100 mg PO BID 02/04/22 11/09/24 History fluticasone propionate 50 1 spray intranasal BID 02/04/22 11/09/24 History mcg/actuation nasal spray,suspension sertraline 100 mg tablet 150 mg PO DAILY 02/04/22 11/09/24 History topiramate 200 mg tablet 200 mg PO BID 02/04/22 11/09/24 History latanoprost 0.005 % eye drops 1 drp EACH EYE QHS 05/28/22 11/09/24 History multivitamin 1 tab PO DAILY 05/28/22 11/09/24 History colestipol 1 gram tablet 2 g (2 x 1 gram) PO TID #540 11/04/24 11/09/24 Rx TABLETS famotidine 40 mg tablet 40 mg PO QDAY #90 tabs 11/04/24 11/09/24 Rx sodium sul 1.479 gram-potas ch See Rx Instructions PO .COMPLEX 11/04/24 11/09/24 Rx 0.188 gram-magnes sul 0.225 gram #28 tabs tablet (Sutab) budesonide 3 mg 6 mg PO DAILY 11/05/24 11/09/24 History capsule,delayed,extended release Allergy/AdvReac Type Severity Reaction Status Date / Time No Known Allergies Allergy Verified 11/10/24 12:10 Family History Mother Myocardial infarction Surgical History History of colonoscopy History of cholecystectomy Social History Smoking Status: Never smoker Review of Systems (Anesthesia) ROS Narrative System reviewed and no additional complaints, except as documented.
--- NOTE | 2024-11-10 13:00 | COLBX_PTH ---
PATIENT: REDD BRANDT LOC: EN U#:[id number] AGE/SX: 69/F ROOM: RE11/10/[address]: Dr. Vivek Feliz DO : 1955 BED: DIS: 11/10/2024 SPEC #: [id number] RECD: 11/10/24 14:45 STATUS: HOA REQ #: [id number] SUZANNE: 11/10/24 13:[address]: Vivek Feliz DEPT: SURGICAL PATHOLOGY RECD BY: Diego Drake ENTERED: 11/10/24 15:21 SP TYPE: COLON BX OTHR DR: Dr. Ilda Cleaning DO Tissues: A - Cecum, NOS B - Ileum, NOS C - COLON BIOPSY Procedures: Surgery Specimen Level IV HEADER OPERATION: Colonoscopy with biopsies PRE-OP DIAGNOSIS: Diarrhea TISSUE SUBMITTED: A- Cecal polyp biopsy, B- Terminal ileum biopsy, C- Random colon biopsy MICROSCOPIC DIAGNOSIS A. Cecum, polyp, biopsy: - Tubular adenoma. B. Terminal ileum, biopsy: - Normal villous architecture with prominent mucosal lymphoid aggregate, favor reactive. C. Colon, random, biopsy: - No specific pathologic change. - The histologic features of microscopic colitis are not demonstrated. MICROSCOPIC DESCRIPTION Slides are reviewed. GROSS DESCRIPTION A. Received in fixative is one container labeled with the patient's name and designated Cecal polyp biopsy. The specimen consists of one irregular fragment of light sánchez soft tissue that measures 0.5 cm. The specimen is totally submitted in one cassette. B. Received in fixative is one container labeled with the patient's name and designated Terminal ileum biopsy. The specimen consists of three irregular fragments of light sánchez soft tissue that measure 0.3 to 0.4 cm. The specimen is totally submitted in one cassette. C. Received in fixative is one container labeled with the patient's name and designated Random colon biopsy. The specimen consists of multiple irregular fragments of light sánchez soft tissue that in aggregate measure 1 x 0.7 x 0.1 cm. The specimen is totally submitted in one cassette. ID 11/10/2024 CPT:35860i8
--- NOTE | 2024-11-10 13:05 | PCM.HP.STD ---
HPI - General General Date of Admission: 11/10/24 Date of Service: 11/10/24 Chief Complaint: Diarrhea HPI Narrative REDD BRANDT, is a 69 F who presents for the evaluation of diarrhea. OV 5.. pt reports that her symptoms have improved, but she is still having diarrhea 1-4 times a day. Pt reports that she will wake up in the night needing to have a bm. Pt reports LLQ pain that comes and goes. Pt continues with Colestipol and Pantoprazole. 08.06.24 OV She continues budesonide 9mg, colestipol 2gm twice daily, and pantoprazole 40mg daily. She reports a soft formed BM daily followed by 2 loose watery stools. She denies tenesmus, hematochezia, and melena. She denies difficulty chewing and swallowing, cough, throat clearing, sinus drainage, heartburn, reflux, nausea, emesis, abdominal bloating. She is complaining of allover extreme skin sensitivity where she has to turn her clothes inside out to avoid the irritation from the seams. She denies having any raised areas of skin, new rashes or pustules. [facility] Medical History History of steroid therapy Chronic cough History of stress test Wears glasses Post-menopausal Arthritis High cholesterol Migraine headache History of diverticulitis Gastric reflux Non-smoker Diverticulitis Irritable bowel syndrome with diarrhea Depression Anxiety Frequent headaches Allergic rhinitis Home Medications ?Medication ?Instructions ?Recorded ?Last Taken ?Type atorvastatin 40 mg tablet 40 mg PO DAILY 02/04/22 11/09/24 History bupropion HCl 100 mg tablet 100 mg PO BID 02/04/22 11/09/24 History fluticasone propionate 50 1 spray intranasal BID 02/04/22 11/09/24 History mcg/actuation nasal spray,suspension sertraline 100 mg tablet 150 mg PO DAILY 02/04/22 11/09/24 History topiramate 200 mg tablet 200 mg PO BID 02/04/22 11/09/24 History latanoprost 0.005 % eye drops 1 drp EACH EYE QHS 05/28/22 11/09/24 History multivitamin 1 tab PO DAILY 05/28/22 11/09/24 History colestipol 1 gram tablet 2 g (2 x 1 gram) PO TID #540 11/04/24 11/09/24 Rx TABLETS famotidine 40 mg tablet 40 mg PO QDAY #90 tabs 11/04/24 11/09/24 Rx sodium sul 1.479 gram-potas ch See Rx Instructions PO .COMPLEX 11/04/24 11/09/24 Rx 0.188 gram-magnes sul 0.225 gram #28 tabs tablet (Sutab) budesonide 3 mg 6 mg PO DAILY 11/05/24 11/09/24 History capsule,delayed,extended release Allergy/AdvReac Type Severity Reaction Status Date / Time No Known Allergies Allergy Verified 11/10/24 12:10 Family History Mother Myocardial infarction Surgical History History of colonoscopy History of cholecystectomy Social History Smoking Status: Never smoker ROS Constitutional Constitutional: Denies fatigue, fever(s), poor appetite, weight gain or weight loss Gastrointestinal Gastrointestinal: Denies belching, bloating, change in bowel habits, change in stool character, chewing difficulty, coffee ground emesis, constipation, cramping, diarrhea, dyspepsia, dysphagia, early satiety, excessive flatus, fecal incontinence, heartburn, hematemesis, hematochezia, hemorrhoids, loose stools, melena, nausea, odynophagia, rectal bleeding, tenesmus, vomiting or weight changes Vital Signs Vital Signs Vital Signs: 11/10/24 12:11 11/10/24 12:11 11/10/24 12:46 Temperature 97.8 F 97.8 F Temperature Source Temporal Pulse Rate 84 84 Respiratory Rate 16 16 Respiratory Pattern Normal Blood Pressure 101/64 101/64 Blood Pressure Mean 76 Blood Pressure Source Monitor Blood Pressure Position Semi-Fowlers Blood Pressure Location Right Arm Pulse Ox 98 98 Oxygen Delivery Method Room Air Room Air Weight Weight: 136 lb 10.986 oz Body Mass Index (BMI) 22.7 Physical Exam Const alert, oriented x3, no apparent distress and healthy appearing General Appearance: cooperative GI normal to inspection, nondistended, normoactive bowel sounds, soft to palpation, non-tender and non-distended Percussion: normal to percussion Rectal Exam: deferred Assessment & Plan Assessment/Plan (1) Diarrhea: (2) Abdominal pain: QUALIFIERS: Abdominal location: generalized Qualified Code(s): R10.84 - Generalized abdominal pain (3) Chronic diarrhea: PLAN: Assessment and Plan Assessment and Plan (1) Chronic diarrhea: Status: Chronic (2) Abdominal pain: Status: Acute Qualifiers: Abdominal location: generalized Qualified Code(s): R10.84 - Generalized abdominal pain Orders: Orders Calprotectin, Stool 08/06/24 K52.9 - Noninfective gastroenteritis and colitis, unspecified, R10.9 - Unspecified abdominal pain CBC W/Diff, Automated 08/06/24 K52.9 - Noninfective gastroenteritis and colitis, unspecified, R10.9 - Unspecified abdominal pain, R19.7 - Diarrhea, unspecified Comprehensive Metabolic Profil 08/06/24 K52.9 - Noninfective gastroenteritis and colitis, unspecified, R10.9 - Unspecified abdominal pain CRP 08/06/24 K52.9 - Noninfective gastroenteritis and colitis, unspecified, R10.9 - Unspecified abdominal pain Erythrocyte Sed Rate 08/06/24 K52.9 - Noninfective gastroenteritis and colitis, unspecified, R10.9 - Unspecified abdominal pain Stool Lactoferrin/WBC 08/06/24 K52.9 - Noninfective gastroenteritis and colitis, unspecified, K58.9 - Irritable bowel syndrome, unspecified, R10.9 - Unspecified abdominal pain [place] Comprehensive Panel 08/06/24 K52.9 - Noninfective gastroenteritis and colitis, unspecified, R10.9 - Unspecified abdominal pain Pancreatic Elastase, Fecal 08/06/24 K52.9 - Noninfective gastroenteritis and colitis, unspecified, R10.9 - Unspecified abdominal pain Allergen, Food Profile 14 08/06/24 K52.9 - Noninfective gastroenteritis and colitis, unspecified, R10.9 - Unspecified abdominal pain Plan REDD BRANDT, is a 69 F who presents to the office today for FU. She reports a soft formed BM daily followed by 2 loose watery stools. She denies tenesmus, hematochezia, and melena. She denies difficulty chewing and swallowing, cough, throat clearing, sinus drainage, heartburn, reflux, nausea, emesis, abdominal bloating. She is complaining of allover extreme skin sensitivity where she has to turn her clothes inside out to avoid the irritation from the seams. She denies having any raised areas of skin, new rashes or pustules. repeat colonoscopy in 2025 for history of tubular adenomas stool for inflammation, WBCs and enzymes blood for IBD, food allergies, CMP, CRP, ESR, CBC consider MRE per recommendations of last OV office FU 3mos
--- NOTE | 2024-11-10 13:38 | OP.COLON_ITS ---
Patient Name: Belgica Malin Procedure Date: 11/10/2024 1:09 PM Date of : 1955 Age: 69 Procedure: Colonoscopy Indications: Chronic diarrhea, Clinically significant diarrhea of unexplained origin Providers: Vivek Feliz DO Referring MD: Ilda Cleaning Medicines: Monitored Anesthesia Care Patient Profile: This is a 69 year old female. Refer to note in patient chart for documentation of history and physical. Last Colonoscopy: several years ago. Complications: No immediate complications. Procedure: Pre-Anesthesia Assessment: - Prior to the procedure, a History and Physical was performed, and patient medications and allergies were reviewed. The patient is competent. The risks and benefits of the procedure and the sedation options and risks were discussed with the patient. All questions were answered and informed consent was obtained. Patient identification and proposed procedure were verified by the physician in the pre-procedure area. Mental Status Examination: alert and oriented. Airway Examination: normal oropharyngeal airway and neck mobility. Respiratory Examination: clear to auscultation. CV Examination: normal. Prophylactic Antibiotics: The patient does not require prophylactic antibiotics. Prior Anticoagulants: The patient has taken no anticoagulant or antiplatelet agents except for NSAID medication. ASA Grade Assessment: II - A patient with mild systemic disease. After reviewing the risks and benefits, the patient was deemed in satisfactory condition to undergo the procedure. The anesthesia plan was to use monitored anesthesia care (MAC). Immediately prior to administration of medications, the patient was re-assessed for adequacy to receive sedatives. The heart rate, respiratory rate, oxygen saturations, blood pressure, adequacy of pulmonary ventilation, and response to care were monitored throughout the procedure. The physical status of the patient was re-assessed after the procedure. After I obtained informed consent, the scope was passed under direct vision. Throughout the procedure, the patient's blood pressure, pulse, and oxygen saturations were monitored continuously. The Colonoscope was introduced through the anus and advanced to the terminal ileum. The colonoscopy was performed without difficulty. The patient tolerated the procedure well. The quality of the bowel preparation was adequate. The terminal ileum, ileocecal valve, appendiceal orifice, and rectum were photographed. Scope In: 1:19:32 PM Scope Withdrawal Time 0 hours 8 minutes 17 seconds Scope Out: 1:30:49 PM Total Procedure Duration Time 0 hours 11 minutes 17 seconds Findings: The perianal and digital rectal examinations were normal. Multiple small and large-mouthed diverticula were found in the recto-sigmoid colon, sigmoid colon, descending colon, splenic flexure and transverse colon. Biopsies were taken with a cold forceps for histology. Verification of patient identification for the specimen was done. Estimated blood loss was minimal. An area of mildly congested mucosa was found in the entire colon. Biopsies for histology were taken with a cold forceps from the entire colon for evaluation of microscopic colitis. Verification of patient identification for the specimen was done. Estimated blood loss was minimal. A 5 mm polyp was found in the cecum. The polyp was sessile. The polyp was removed with a jumbo cold forceps. Resection and retrieval were complete. Verification of patient identification for the specimen was done. Estimated blood loss was minimal. A patchy area of the terminal ileum was congested. Biopsies were taken with a cold forceps for histology. Verification of patient identification for the specimen was done. Estimated blood loss was minimal. Impression: - Diverticulosis in the recto-sigmoid colon, in the sigmoid colon, in the descending colon, at the splenic flexure and in the transverse colon. Biopsied. - Congested mucosa in the entire examined colon. Biopsied. - One 5 mm polyp in the cecum, removed with a jumbo cold forceps. Resected and retrieved. - Congested mucosa in the terminal ileum. Biopsied. Recommendation: - Discharge patient to home. - Resume previous diet. - Continue present medications. - Await pathology results. - Repeat colonoscopy in 5 years for surveillance. Procedure Code(s): --- Professional --- 21776, Colonoscopy, flexible; with biopsy, single or multiple CPT copyright 2021 [employer]. All rights reserved. The codes documented in this report are preliminary and upon furnace utility operator review may be revised to meet current compliance requirements. Vivek Feliz DO 11/10/2024 1:38:17 PM This report has been signed electronically. Number of Addenda: 0 Note Initiated On: 11/10/2024 1:09 PM
--- NOTE | 2024-11-10 13:38 | OP.PROVAT_ITS ---
11/10/2024 Ilda Cleaning [address] [facility] [place] [address] Re : Colonoscopy procedure for Belgica Malin Dear Dr. Cleaning This procedure was performed on Sunday, November 10, 2024. My impressions and recommendations are as follows: Impressions : - Diverticulosis in the recto-sigmoid colon, in the sigmoid colon, in the descending colon, at the splenic flexure and in the transverse colon. Biopsied. - Congested mucosa in the entire examined colon. Biopsied. - One 5 mm polyp in the cecum, removed with a jumbo cold forceps. Resected and retrieved. - Congested mucosa in the terminal ileum. Biopsied. Recommendations : - Discharge patient to home. - Resume previous diet. - Continue present medications. - Await pathology results. - Repeat colonoscopy in 5 years for surveillance. My findings are described in the full procedure note, which is enclosed. If I can be of further assistance, please feel free to contact me at . Sincerely, Vivek Feliz, 11/10/2024 1:38:17 PM This report has been signed electronically.
--- NOTE | 2024-11-10 13:41 | PCM.POST.ANE ---
Anesthesia: Postop Eval I Current Vital Signs Temperature: 97.1 F Pulse Rate: 77 Blood Pressure: 83/59 Respiratory Rate: 16 Pulse Ox: 97 Oxygen Delivery Method: Room Air Assessment Airway patent: Yes Spontaneous unlabored respirations: Yes Mental status: Asleep nausea: No Vomiting: No Anesthesia Complication: No Fluid Hydration Crystalloid volume administer (ml): 500 Total IV fluid infused: 500 Progress Note Anesthesia document: Postop Eval 1 completed: Yes
--- NOTE | 2024-11-10 14:36 | PCM.POSTANE2 ---
Anesthesia Postop Eval I Sum Postop Eval Completion status Anesthesia document: Postop Eval 1 completed: Yes Anesthesia Postop Eval I Summary Anesthesia Postop Eval I Summary: Anesthesia Postop Eval I: Assessment Summary Airway patent Yes 11/10/24 13:42 [email or web address] Spontaneous unlabored Yes 11/10/24 13:42 [email or web address] respirations Mental status Asleep 11/10/24 13:42 [email or web address] nausea No 11/10/24 13:42 [email or web address] Vomiting No 11/10/24 13:42 [email or web address] Anesthesia Postop Eval I: Fluid Summary Crystalloid volume administer 500 11/10/24 13:42 [email or web address] (ml) Colloids volume administered ( ml) Blood Product volume administered (ml) Total IV fluid infused 500 11/10/24 13:42 [email or web address] Anesthesia Postop Eval I: Summary Notes Anesthesia Complication No 11/10/24 13:42 [email or web address] Anesthesia Complication Comment: Post-operative progress note Anesthesia: Postop Eval II Evaluation Mental status: Awake and Calm Pain Level: 1 nausea: No Vomiting: No Complications Anesthesia Complication: No
== END 2024-11-10 14:24 | disposition home or self-care (01) ==
LOC: EN 11:42 → AC 11:43
PROVIDERS: PCP Family Medicine; Referring Provider Family Medicine; Visit Provider Internal Medicine Gastroenterology
PROC: 0DJD8ZZ Inspection of Lower Intestinal Tract, Via Natural or Artificial Opening Endoscopic (ICD-10-PCS; CPT 45378; principal; 2024-11-10 12:55)
DX: D12.0 Benign neoplasm of cecum (principal); K57.30 Diverticulosis of large intestine without perforation or abscess without bleeding; E78.00 Pure hypercholesterolemia, unspecified; Z79.51 Long term (current) use of inhaled steroids; K63.89 Other specified diseases of intestine; Z79.899 Other long term (current) drug therapy; K21.9 Gastro-esophageal reflux disease without esophagitis
CPT/HCPCS: 45380; 88305; J2405